=== PATIENT | male | born 1985 | race Caucasian/White ===

== ENCOUNTER 2018-06-10 11:16 | Outpatient (CLI) | payer SELFPAY ==
[2018-06-10 13:17] LABS: ALT 87 U/L (12-78); AST 30 U/L (15-37); Alkaline Phosphatase 80 U/L (46-116); Anion Gap 9.5 mmol/L (3-11); BUN 12 mg/dL (7-18); Bilirubin, Total 0.4 mg/dL (0.2-1.0); CO2 27.5 mmol/L (21.0-32.0); CREATININE 1.11 mg/dL (0.70-1.30); Calcium 9.1 mg/dL (8.5-10.1); Chloride 104 mmol/L (98-107); Cholesterol 256 mg/dL (50-200); Glucose 95 mg/dL (70-100); HDL Cholesterol 28 mg/dL (40-60); LDL CHOLESTEROL 175 mg/dL (<100); Sodium 141 mmol/L (136-145); TSH 1.63 uIU/mL (0.358-3.74); Total Protein 7.4 g/dL (6.4-8.2); Triglyceride 243 mg/dL (30-150)
[2018-06-10 13:42] LABS: FREE T4 1.17 ng/dL (0.76-1.46)
== END 2018-06-10 11:36 ==
PROVIDERS: PCP Nurse Practitioner Family; Visit Provider Nurse Practitioner Family
DX: Z00.00 Encounter for general adult medical examination without abnormal findings (principal); Z13.29 Encounter for screening for other suspected endocrine disorder; Z13.228 Encounter for screening for other metabolic disorders; Z13.220 Encounter for screening for lipoid disorders
CPT/HCPCS: 36415; 80053; 80061; 83721; 84439; 84443

== ENCOUNTER 2019-03-02 15:40 | Outpatient (REF) | payer BC, SELFPAY ==
[2019-03-03 10:54] LABS: Campylobacter PCR SEE COMMENTS; Salmonella PCR SEE COMMENTS; Shiga Toxin PCR SEE COMMENTS; Shigella/Enteroinvasive Ecoli SEE COMMENTS
== END 2019-03-02 16:00 ==
LOC: LBN 15:40
PROVIDERS: PCP Nurse Practitioner Family; Visit Provider Internal Medicine
DX: R19.7 Diarrhea, unspecified (principal)
CPT/HCPCS: 87329; 87505; 87177

== ENCOUNTER 2019-12-19 12:37 | Outpatient (REF) | payer BC, SELFPAY ==
[2019-12-19 14:14] LABS: BUN 13 mg/dL (7-18); CREATININE 0.99 mg/dL (0.70-1.30); Calculated LDL 189 mg/dL (<100); Chloride 104 mmol/L (98-107); Cholesterol 249 mg/dL (<200); Glucose 97 mg/dL (74-106); HDL Cholesterol 29 mg/dL (40-60); Potassium 4.7 mmol/L (3.5-5.1); Sodium 140 mmol/L (136-145); Triglyceride 157 mg/dL (<150)
[2019-12-19 14:20] LABS: Hemoglobin A1C 5.2 % (3.8-5.6)
== END 2019-12-19 12:57 ==
LOC: LBN 12:37
PROVIDERS: PCP Nurse Practitioner Family; Visit Provider Nurse Practitioner Family
DX: E78.5 Hyperlipidemia, unspecified (principal)
CPT/HCPCS: 80048; 80061; 83036

== ENCOUNTER 2020-01-24 13:08 | Outpatient (CLI) | payer BC, SELFPAY ==
[2020-01-26 11:34] LABS: Patient Race White; SARS-CoV-2 RNA Undetected (Undetected); SARS-CoV-2 Specimen Source Nasopharynx
== END 2020-01-24 13:28 ==
PROVIDERS: PCP Nurse Practitioner Family; Visit Provider Nurse Practitioner
DX: Z11.59 Encounter for screening for other viral diseases (principal)
CPT/HCPCS: U0003

== ENCOUNTER 2023-12-14 17:03 | Outpatient (REF) | payer BC, SELFPAY ==
[2023-12-14 21:03] LABS: Abs Immature Grans 0.07 10^3/uL (0.0-0.06); Absolute Basophil Count 0.05 10^3/uL (0.0-0.2); Absolute Eosinophil Count 0.11 10^3/uL (0.0-0.7); Absolute Lymphocyte Count 1.72 10^3/uL (1.2-3.4); Absolute Monocyte Count 0.71 10^3/uL (0.1-0.8); Basophils % 0.4 %; Eosinophils % 0.9 %; HCT 42.2 % (40.0-50.0); HGB 14.1 g/dL (13.5-17.5); Immature Grans % 0.6 %; Lymphocytes % 14.6 %; MCH 29.3 pg (27.0-33.0); MCHC 33.4 % (32.0-36.0); MCV 88 fL (80-95); MPV 10.3 fL (8.0-11.0); Neutrophils % 77.5 %; Platelet Count 295 10^3/uL (130-400); RBC 4.82 10^6/uL (4.36-5.78); RDW 12.8 % (11.8-14.1); RDW-SD 41.1 fL; WBC 11.79 10^3/uL (4.4-10.8)
[2023-12-14 21:05] LABS: Absolute Neutrophil Count 9.14 10^3/uL (1.2-6.7)
[2023-12-14 21:13] LABS: ALT 87 U/L (16-63); AST 54 U/L (15-37); Albumin 3.8 g/dL (3.4-5.0); Alkaline Phosphatase 153 U/L (46-116); Anion Gap 14.3 mmol/L (3-11); BUN 11 mg/dL (7-18); Bilirubin, Total 1.87 mg/dL (0.2-1.0); C-Reactive Protein 16.58 mg/dL (<or=0.5); CO2 23.7 mmol/L (21.0-32.0); CREATININE 1.1 mg/dL (0.70-1.30); Chloride 99 mmol/L (98-107); Estimated GFR 89.22 (mL/min/1.73m2); Glucose 78 mg/dL (74-106); Potassium 4.2 mmol/L (3.5-5.1); Sodium 137 mmol/L (136-145); Total Protein 7.2 g/dL (6.4-8.2)
[2023-12-16 10:46] LABS: Lyme Ab w Rflx to Lyme Confirm Positive (Negative)
[2023-12-16 12:15] LABS: Lyme IgG Ab Positive (Negative); Lyme IgM Ab Positive (Negative)
[2023-12-18 01:17] LABS: Anaplasma phagocytophilum Negative (Negative); B. miyamotoi PCR Negative (Negative); Babesia divergens/MO-1 Negative (Negative); Babesia duncani Negative (Negative); Babesia microti Negative (Negative); Ehrlichia chaffeensis Negative (Negative); Ehrlichia ewingii/canis Negative (Negative); Ehrlichia muris eauclairensis Negative (Negative)
== END 2023-12-14 17:04 | disposition home or self-care (01) ==
LOC: LBN 17:03
PROVIDERS: Visit Provider Nurse Practitioner Family
DX: R68.89 Other general symptoms and signs; L03.312 Cellulitis of back [any part except buttock and flank]
CPT/HCPCS: 80053; 86617; 87798; 85025; 86140; 86618

== ENCOUNTER 2024-03-31 03:10 | Outpatient (CLI) | payer BC, SELFPAY ==
[2024-03-31 12:46] LABS: Abs Immature Grans 0.02 10^3/uL (0.0-0.06); Absolute Basophil Count 0.05 10^3/uL (0.0-0.2); Absolute Eosinophil Count 0.26 10^3/uL (0.0-0.7); Absolute Monocyte Count 0.52 10^3/uL (0.1-0.8); Absolute Neutrophil Count 3.87 10^3/uL (1.2-6.7); Basophils % 0.7 %; Eosinophils % 3.8 %; HCT 50.3 % (40.0-50.0); HGB 16.1 g/dL (13.5-17.5); Immature Grans % 0.3 %; Lymphocytes % 30.8 %; MCH 29.2 pg (27.0-33.0); MCV 91 fL (80-95); MPV 11.3 fL (8.0-11.0); Monocytes % 7.6 %; Neutrophils % 56.8 %; Platelet Count 227 10^3/uL (130-400); RBC 5.52 10^6/uL (4.36-5.78); RDW 13.9 % (11.8-14.1); WBC 6.82 10^3/uL (4.4-10.8)
[2024-03-31 12:58] LABS: Hemoglobin A1C 5.1 % (<5.7)
[2024-03-31 13:08] LABS: ALT 52 U/L (16-63); AST 30 U/L (15-37); Albumin 3.8 g/dL (3.4-5.0); Alkaline Phosphatase 80 U/L (46-116); Anion Gap 9.4 mmol/L (3-11); BUN 11 mg/dL (7-18); Bilirubin, Total 0.58 mg/dL (0.2-1.0); CO2 26.6 mmol/L (21.0-32.0); CREATININE 1.1 mg/dL (0.70-1.30); Calcium 8.6 mg/dL (8.5-10.1); Calculated LDL 151 mg/dL (<100); Chloride 105 mmol/L (98-107); Cholesterol 225 mg/dL (<200); Estimated GFR 88.67 (mL/min/1.73m2); Glucose 90 mg/dL (74-106); HDL Cholesterol 36 mg/dL (40-60); Potassium 3.9 mmol/L (3.5-5.1); Sodium 141 mmol/L (136-145); TSH (W/Ref FT4) 1.29 uIU/mL (0.36-3.74); Total Protein 6.9 g/dL (6.4-8.2); Triglyceride 194 mg/dL (<150)
[2024-03-31 18:33] LABS: Hepatitis C Ab w Rflx HCV PCR Negative (Negative)
[2024-03-31 18:34] LABS: HBs Antibody, Quant 212.1 mIU/mL (See Note); Hep B Surface Ab Positive (See Note); Hepatitis B Core Antibody Negative (Negative); Hepatitis B Surface Antigen Negative (Negative)
[2024-03-31 20:28] LABS: HIV-1/2 Ag & Ab Screen Negative (Negative)
== END 2024-03-31 03:11 | disposition home or self-care (01) ==
LOC: LOS 03:10
PROVIDERS: PCP Nurse Practitioner Family; Visit Provider Nurse Practitioner Family
DX: Z11.59 Encounter for screening for other viral diseases (principal); E78.5 Hyperlipidemia, unspecified; A69.20 Lyme disease, unspecified; Z11.4 Encounter for screening for human immunodeficiency virus [HIV]
CPT/HCPCS: 36415; 80053; 80061; 86704; 86706; 86803; 87340; 87389; 83036; 84443; 85025

== ENCOUNTER 2024-05-19 14:50 | Outpatient (CLI) | payer BC, SELFPAY ==
--- NOTE | 2024-05-19 14:47 | DI.RAD_ITS ---
Exam(s) XR ABDOMEN FLAT UPRIGHT EXAM: 2D digital imaging was performed. CLINICAL HISTORY: evaluate pathology, Abdominal pain R10.9. COMPARISON: No exams were available for comparison TECHNIQUE: Supine and upright views of the abdomen was performed. Three images were obtained. FINDINGS: LUNG BASES: Clear. BOWEL GAS PATTERN: Nondistended. FREE AIR: None. CALCIFICATIONS: No radiopaque calcifications. OSSEOUS STRUCTURES: Normal for age. OTHER FINDINGS: None. IMPRESSION: No evidence of an acute abdomen. DATA REPOSITORY: RADIATION DOSE DELIVERED:
== END 2024-05-19 15:10 ==
LOC: DI 14:50
PROVIDERS: PCP Nurse Practitioner Family; Visit Provider Nurse Practitioner Family
DX: R10.9 Unspecified abdominal pain (principal)
CPT/HCPCS: 74019

== ENCOUNTER 2024-05-19 14:53 | Outpatient (CLI) | payer BC, SELFPAY ==
[2024-05-19 15:20] LABS: Abs Immature Grans 0.04 10^3/uL (0.0-0.06); Absolute Basophil Count 0.05 10^3/uL (0.0-0.2); Absolute Eosinophil Count 0.16 10^3/uL (0.0-0.7); Absolute Lymphocyte Count 1.61 10^3/uL (1.2-3.4); Absolute Neutrophil Count 8.68 10^3/uL (1.2-6.7); Basophils % 0.4 %; Eosinophils % 1.4 %; HCT 46.3 % (40.0-50.0); HGB 15.4 g/dL (13.5-17.5); Immature Grans % 0.4 %; Lymphocytes % 14.2 %; MCH 29.5 pg (27.0-33.0); MCHC 33.3 % (32.0-36.0); MCV 89 fL (80-95); MPV 10.5 fL (8.0-11.0); Monocytes % 7.1 %; Neutrophils % 76.5 %; Platelet Count 217 10^3/uL (130-400); RBC 5.22 10^6/uL (4.36-5.78); RDW 13.2 % (11.8-14.1); RDW-SD 42.6 fL; WBC 11.34 10^3/uL (4.4-10.8)
[2024-05-19 15:22] LABS: Absolute Monocyte Count 0.81 10^3/uL (0.1-0.8)
[2024-05-19 15:35] LABS: ALT 38 U/L (16-63); AST 17 U/L (15-37); Albumin 4.2 g/dL (3.4-5.0); Alkaline Phosphatase 78 U/L (46-116); Anion Gap 8.2 mmol/L (3-11); BUN 12 mg/dL (7-18); Bilirubin, Total 1.18 mg/dL (0.2-1.0); CO2 28.8 mmol/L (21.0-32.0); CREATININE 1.1 mg/dL (0.70-1.30); Chloride 102 mmol/L (98-107); Estimated GFR 88.67 (mL/min/1.73m2); Glucose 92 mg/dL (74-106); Potassium 4.1 mmol/L (3.5-5.1); Sodium 139 mmol/L (136-145); Total Protein 7.6 g/dL (6.4-8.2)
== END 2024-05-19 14:54 | disposition home or self-care (01) ==
LOC: LBO 14:53
PROVIDERS: PCP Nurse Practitioner Family; Visit Provider Nurse Practitioner Family
DX: R10.9 Unspecified abdominal pain (principal)
CPT/HCPCS: 36415; 80053; 85025

== ENCOUNTER 2024-05-21 14:18 | Inpatient (IN) | payer BC, SELFPAY ==
[2024-05-21] VITALS (11 sets, daily range): BP systolic 136–178; BP diastolic 69–101; PULSE 88–121; RESP 12–19; TEMP 36.6–37.5; O2SAT 92–95
--- NOTE | 2024-05-21 14:30 | DI.CT_ITS ---
Exam(s) CT ABDOMEN PELVIS W EXAM: CT ABDOMEN PELVIS W CLINICAL HISTORY: Periumbilical pain, eval diverticulitis, appy, etc TECHNIQUE: Imaging Protocol: Axial computed tomography images with coronal and sagittal reformatted images were created and reviewed. CONTRAST MATERIAL: Intravenous: Omnipaque 350 Contrast volume:100 mL Oral: No COMPARISON: CR XR ABDOMEN FLAT UPRIGHT from 05/19/2024 FINDINGS: ABDOMEN: Lung Bases: There is atelectasis in the lung bases. Liver: Normal density. No measurable mass. Portal, Superior Mesenteric, and Splenic Veins: Unremarkable. Gallbladder and Biliary Tract: No radiodense calculus or dilation. Pancreas: Normal density, no abnormal calcifications or inflammatory process. Spleen: Normal. Adrenals: No masses seen. Kidneys: Normal size, contour and axis. No radiodense stones or obstructive uropathy. No masses seen. Abdominal Aorta: Abdominal portion non-dilated. Bowel: There is bowel wall thickening seen in the mid sigmoid colon. There are diverticula present. There are inflammatory changes seen in the surrounding soft tissues. The findings are most suggesti ve of acute diverticulitis. There is extraluminal air adjacent to the bowel consistent with a ruptur ed viscus. There is no evidence of bowel obstruction. Appendix is unremarkable. Peritoneal Cavity: No ascites, collection or mesenteric inflammatory response. Lymph Nodes: Within normal limits. Bones: Within normal limits for the patient's age. There is L5 spondylolysis without significant spo ndylolisthesis. Soft Tissues: Unremarkable. PELVIS: Bladder: Symmetric distention, no gross wall thickening. Reproductive Organs: Unremarkable as visualized. Lymph Nodes: Within normal limits. Bones: Within normal limits for the patient's age. IMPRESSION: 1. Findings consistent with acute diverticulitis of the sigmoid colon. There is free air seen around the bowel consistent with perforation. No abscess is present. 2. Findings were discussed with Dr. Reyes at 3:39 p.m. on 05/21/2024. RADIATION DOSE DELIVERED: 730.89mGy.cm Total DLP DATA REPOSITORY: All CT scans at this facility are submitted to the National Radiology Data Registry (NRDR) Dose Index Registry (DIR) with the [employer] (ACR). RADIATION OPTIMIZATION: All CT scans at this facility use at least one of these dose optimization te chniques: automated exposure control; mA and/or kV adjustment per patient size (includes targeted exa ms where dose is matched to clinical indication); or iterative reconstruction.
--- NOTE | 2024-05-21 14:36 | ED.GENADUL_ITS ---
Discharge Plan Disposition Patient Disposition: Admit to [facility] Condition: Stable Discharge Details Chief Complaint: Abd Prob Clinical Impression: Perforated diverticulum of large intestine Admit Date/Time: 05/21/24 17:11 Admit Provider: Georgi Tariq Attending Provider: Georgi Tariq Primary Care Provider: Fatou Hayes ED Provider: Maryann Salgado Discharge Data Discharge Date/Time-TO BE ENTERED AT DEPARTURE: 05/21/24 17:49 HPI General Mode of arrival: ambulatory . Date/Time Provider Initiated Documentation: 05/21/24 14:20 . Limitations to Documentation: no limitations . Information obtained by: patient, family and old records reviewed . HPI Narrative: HPI: This is a 39-year-old male patient with a past medical history significant for nicotine and alcohol use, bilateral inguinal hernia surgery as a child, hyperlipidemia, presenting for evaluation of abdominal pain. He has had pain in his bilateral lower abdomen since Thursday, was seen at urgent care where he had reassuring lab work and an abdominal x-ray, and was started on antibiotics for diverticulitis. He started those antibiotics yesterday (Augmentin), but has not noticed an improvement in his symptoms and has actually noticed a worsening. He has had a fever for the last 3 days to a Tmax of 101.4, treating with Advil in the home environment, last dose last night. He reports that he has had some nausea but no vomiting, has not had a large stool output given his low p.o. intake, but has been able to drink water. He denies hematuria, hematochezia, and has been passing flatulence. The patient has not had any other abdominal surgeries, denies back pain, chest pain. Exam: Gen: Awake and alert, in no apparent distress HEENT: Non-icteric sclera Neck: Supple Lungs: No apparent respiratory distress, normal respiratory effort. CV: Appears well perfused, heart with tachycardic rate but regular rhythm, strong distal pulses Abdomen: Non-distended, bowel sounds present, abdomen tender to palpation in the periumbilical bilateral lower quadrant regions without rigidity, does have some rebound tenderness. No guarding. MSK: Moves 4 extremities without apparent limitation in ROM Skin: Visualized skin without rashes, cyanosis. Neuro: Normal Gait, no obvious focal deficits or facial asymmetry. Speaks in full, clear sentences. Psych: Appropriate for situation. MDM: This is a 39-year-old male patient presenting for evaluation of abdominal pain. Differential includes but is not related to diverticulitis, including complication such as microperforation or abscess, considered appendicitis, urinary tract conditions including pyelonephritis, UTI, nephrolithiasis. Considered bowel obstruction, mesenteric ischemia and aortic pathology though the patient is young he does have a few risk factors such as his nicotine use and hyperlipidemia. Considered hepatitis, pancreatitis, cholecystitis, gastritis/PUD. Considered metabolic and electrolyte derangements, dehydration and kidney injury. Will obtain laboratory studies to include CBC, CMP, magnesium, lipase, and urinalysis. I will obtain a CT abdomen pelvis with contrast to better characterize any abnormalities which might account for the patient's symptoms. The patient is desiring to avoid excessive medications, and so I will provide him with a dose of intravenous Toradol for initial pain management. ED Course: I reviewed the patient's laboratory studies, which show a leukocytosis to 15 without anemia or thrombocytopenia. Chemistry panel with very mild hyponatremia, no evidence of kidney dysfunction, but the patient does have an elevated bilirubin to 6.8, predominantly conjugated, with a mild transaminitis and elevation in his alkaline phosphatase. Lipase is low and the urine demonstrates ketonuria and bilirubin but no infectious findings. I independently reviewed the patient's CT scan, which does show evidence of diverticulitis with a concern for perforation with free air and extensive fat stranding. No evidence for liver or gallbladder pathology on the CT imaging. The patient received a dose of Zosyn, and a repeat bilirubin study was sent at the request of general surgery. This shows a slight decrease with a bilirubin of 5.6. He had a normal INR, and a negative Tylenol level. The patient was graciously accepted to the general surgery service for admission for his complicated diverticulitis. Transferred from our department without incident. The patient's tachycardia resolved during his time in the emergency department. Maryann Salgado MD Related Data Home Medications ?Medication ?Instructions ?Recorded ?Confirmed amoxicillin 875 mg-potassium 1 tab PO BID 10 days #20 tabs 05/19/24 05/21/24 clavulanate 125 mg tablet Previous Rx's ?Medication ?Instructions ?Recorded amoxicillin 875 mg-potassium 1 tab PO BID 10 days #20 tabs 05/19/24 clavulanate 125 mg tablet Allergies Allergy/AdvReac Type Severity Reaction Status Date / Time No Known Allergies Allergy Verified 05/21/24 14:25 General Stated Complaint: Abd Prob DAR: 3 Course Vital Signs Vital signs: Vital Signs Temperature 36.6 C 05/21/24 14:20 Pulse 121 H 05/21/24 14:20 Respiratory Rate 18 05/21/24 14:20 Blood Pressure 178/101 H 05/21/24 14:20 Pulse Oximetry 95 05/21/24 14:20 Temperature 36.6 C 05/21/24 14:27 Temperature Source Oral 05/21/24 14:27 Pulse 121 H 05/21/24 14:27 Respiratory Rate 18 05/21/24 14:27 Blood Pressure 178/101 H 05/21/24 14:27 Blood Pressure Position Sitting 05/21/24 14:27 Pulse Oximetry 95 05/21/24 14:27 Oxygen Delivery Method Room Air 05/21/24 14:27 Oxygen Flow Rate 0 05/21/24 14:27 Medical Decision Making Quality:SDOH Health Related Social Needs: Health related social needs education (Z55.6) PFSH All Active Problems (Updated 05/21/24 @ 18:03 by Maryann Salgado MD) Perforated diverticulum of large intestine (Acute) Obesity (BMI 30-39.9) (Chronic) Cigarette smoker (Chronic) Hyperlipidemia (Chronic) Medical History Lyme disease (2023) Surgical History S/P left inguinal hernia repair (07/22/94) S/P right inguinal hernia repair (~03/1987) Family History Mother , at 48 from hypothermia Substance abuse Alcohol abuse Father , at 66 of [place] Heart disease Myocardial infarction Alcohol abuse Maternal Grandfather , in his 70s of kidney cancer Cancer of kidney Maternal Grandmother , at 82 of pancreatic cancer Pancreatic cancer Alcohol use disorder Paternal Grandfather , in his 60s of [place] Heart disease Myocardial infarction Paternal Grandmother , in her 80s No problems noted. Sister No problems noted. Sister No problems noted. Sister No problems noted. Brother No problems noted. Brother No problems noted. Social History Smoking/Tobacco Use Status: Current every day Tobacco Type: cigarettes Smoking packs per day: 1.00 Smoking cigarettes per day: 20.0 Years smoked: 12 Smoking pack-years: 12.00 Tobacco: How many years used: 17 Quit status: considering quitting Second Hand Exposure: Yes Smoking risk assessment performed?: Yes Alcohol Intake: current Alcohol Intake frequency: 0-2 drinks per day Alcohol type: beer Details: 6 or more drinks weekly Drug use: Occasionally Substance use type: marijuana Adopted: No Caregiver/Support person: No Household members: spouse Housing: house Number of Children: 0 number of grandchildren: 0 Communication Needs: Corrective Lenses Education Level: high school Do you need help understanding health information?: Rarely 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 Pets and animals: Yes Pets and animals: cat(s) and dog(s) Sexually active: Yes Do you think of yourself as: straight/heterosexual Current gender identity: male What is your relationship status?: How often do you talk on the phone with friends or family?: three or more times per week How often do you get together with friends or relatives?: twice per week How often do you attend jehovah's witness or yazidism services?: decline to answer Do you belong to any clubs or organized social groups?: yes Panel score (0-1 are the most socially isolated patients): 3 NHANES result reviewed/action taken: Yes What type of physical activity do you participate in: none and other Details: Golf Frequency: 1-2 times per week Sayra/Scientology: Non baptism Special sayra needs: No Seatbelt use: always Helmet use: No Drive intox or ride w/intox milk wagon driver: Yes Drive intox or w/intox milk wagon driver: weekly Firearms in home: Yes Firearms unloaded and locked: Yes Do you feel safe at home: Yes Do you feel safe in your relationship?: Yes Victim of physical abuse: No Victim of emotional abuse: No Victim of sexual abuse: No Would you like helpful sources: No PAWSS Have you Been Recently Intoxicated or Drunk Within the Last 30 days?: No Have you Ever Experienced Previous Episodes of Alcohol Withdrawal?: No Have you ever Experienced Withdrawal Seizures?: No Have you ever Experienced Delirium Tremens(DT)s?: No Have you ever undergone Alcohol Rehabilitation Treatment (i.e, inpt ot outpatient treatment programs)?: No Have you ever Experienced Blackouts?: No Have you ever Combined Alcohol with other Downers within the last 90 days?: No Have you ever Combined Alcohol with any other Substance of Abuse during the last 90 days?: No Positive Blood Alcohol level on Presentation? [PCS.BAL]: Unable to Obtain Evidence of Increased Autonomic Activity (i.e. HR>120, tremor, sweating, agitation, nausea)?: No Result: 0
[2024-05-21] MEDS: Ketorolac 15 MG/ML VIAL IVP (14:45)
[2024-05-21 14:59] LABS: Abs Immature Grans 0.09 10^3/uL (0.0-0.06); Absolute Basophil Count 0.03 10^3/uL (0.0-0.2); Absolute Eosinophil Count 0.03 10^3/uL (0.0-0.7); Absolute Lymphocyte Count 1.15 10^3/uL (1.2-3.4); Basophils % 0.2 %; Eosinophils % 0.2 %; HGB 15.9 g/dL (13.5-17.5); Immature Grans % 0.6 %; Lymphocytes % 7.6 %; MCH 29.1 pg (27.0-33.0); MCHC 33.1 % (32.0-36.0); MCV 88 fL (80-95); MPV 10.6 fL (8.0-11.0); Monocytes % 6.1 %; Neutrophils % 85.3 %; Platelet Count 234 10^3/uL (130-400); RBC 5.46 10^6/uL (4.36-5.78); RDW 13.1 % (11.8-14.1); RDW-SD 42.3 fL; WBC 15.18 10^3/uL (4.4-10.8)
[2024-05-21] MEDS: Omnipaque 350 MG/ML 100 ML BTL IJ (15:00)
[2024-05-21] MEDS: Normal Saline - Diluent 50 ML VIAL IJ (15:01)
[2024-05-21 15:03] LABS: Bilirubin Moderate (Negative); Blood Negative (Negative); Clarity Clear (Clear); Glucose Negative (Negative); Ketones >=160 mg/dL (Negative); Leukocyte Esterase Negative (Negative); Nitrite Negative (Negative); Specific Gravity 1.015 (1.005-1.025); Urobilinogen >=8.0 mg/dL (Up to 0.2)
[2024-05-21 15:08] LABS: Absolute Monocyte Count 0.93 10^3/uL (0.1-0.8); Absolute Neutrophil Count 12.95 10^3/uL (1.2-6.7)
[2024-05-21 15:17] LABS: ALT 70 U/L (16-63); AST 45 U/L (15-37); Albumin 3.6 g/dL (3.4-5.0); Alkaline Phosphatase 159 U/L (46-116); BUN 9 mg/dL (7-18); Calcium 9.4 mg/dL (8.5-10.1); Chloride 97 mmol/L (98-107); Estimated GFR 99.41 (mL/min/1.73m2); Glucose 91 mg/dL (74-106); Magnesium 2.1 mg/dL (1.8-2.4); Potassium 3.7 mmol/L (3.5-5.1); Sodium 132 mmol/L (136-145); Total Protein 8.2 g/dL (6.4-8.2)
[2024-05-21 15:22] LABS: Bacteria Rare HPF (Negative); C & S Indicated? No; Casts Negative LPF (Negative); Crystals Negative HPF (Negative); Epithelial Cells Rare HPF (Negative); Mucus Negative (Negative); Other Cells Rare Transitional (Negative); RBC 0-2 HPF (0-2); WBC 0-2 HPF (0-5)
[2024-05-21 15:31] LABS: Lipase 17 U/L (<78)
[2024-05-21 15:31] LABS: Lab Add On Test DONE
[2024-05-21 15:42] LABS: Bilirubin, Direct 4.2 mg/dL (0.0-0.2)
[2024-05-21] MEDS: PIPERACILLIN/TAZO 4.5 GM in Normal Saline 100 ML IVPB (16:05)
[2024-05-21 16:33] LABS: INR 1.1 (0.9-1.1); Prothrombin Time 10.6 sec (9.1-11.1)
[2024-05-21 17:00] LABS: Acetaminophen < 2 ug/mL (10-30)
[2024-05-21 17:03] LABS: Bilirubin, Direct 3.5 mg/dL (0.0-0.2); Bilirubin, Total 5.78 mg/dL (0.2-1.0)
--- NOTE | 2024-05-21 17:10 | SCONE_ITS ---
Date of service: 05/21/24 Time of Service: 17:12 Assessment and Plan Assessment and plan (1) Perforated diverticulum of large intestine: Status: Acute Assessment and plan: 39-year-old man with perforated sigmoid diverticulitis. Hemodynamically stable. Focal peritoneal signs only. Has some degree of acute liver failure secondary to sepsis, but that appears to be improving. Plan: N.p.o. IV fluid resuscitation IV antibiotics DVT prophylaxis Serial abdominal exams Monitor lab work Exploratory surgery with Camacho's diversion if anything acutely worsens or if not improving after 24-36 hours History of Present Illness Narrative: 39 man presented with perforated diverticulitis. Reportedly has no significant medical problems. No prior surgeries. The first set PFS All Active Problems (Updated 05/21/24 @ 17:51 by Georgi Tariq MD) Perforated diverticulum of large intestine (Acute) Obesity (BMI 30-39.9) (Chronic) Cigarette smoker (Chronic) Hyperlipidemia (Chronic) Medical History Lyme disease (2023) Surgical History S/P left inguinal hernia repair (07/22/94) S/P right inguinal hernia repair (~03/1987) Family History Mother , at 48 from hypothermia Substance abuse Alcohol abuse Father , at 66 of [place] Heart disease Myocardial infarction Alcohol abuse Maternal Grandfather , in his 70s of kidney cancer Cancer of kidney Maternal Grandmother , at 82 of pancreatic cancer Pancreatic cancer Alcohol use disorder Paternal Grandfather , in his 60s of [place] Heart disease Myocardial infarction Paternal Grandmother , in her 80s No problems noted. Sister No problems noted. Sister No problems noted. Sister No problems noted. Brother No problems noted. Brother No problems noted. Social History Smoking/Tobacco Use Status: Current every day Tobacco Type: cigarettes Smoking packs per day: 1.00 Smoking cigarettes per day: 20.0 Years smoked: 12 Smoking pack-years: 12.00 Tobacco: How many years used: 17 Quit status: considering quitting Second Hand Exposure: Yes Smoking risk assessment performed?: Yes Alcohol Intake: current Alcohol Intake frequency: 0-2 drinks per day Alcohol type: beer Details: 6 or more drinks weekly Drug use: Occasionally Substance use type: marijuana Adopted: No Caregiver/Support person: No Household members: spouse Housing: house Number of Children: 0 number of grandchildren: 0 Communication Needs: Corrective Lenses Education Level: high school Do you need help understanding health information?: Rarely 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 Pets and animals: Yes Pets and animals: cat(s) and dog(s) Sexually active: Yes Do you think of yourself as: straight/heterosexual Current gender identity: male What is your relationship status?: How often do you talk on the phone with friends or family?: three or more times per week How often do you get together with friends or relatives?: twice per week How often do you attend religion or sikhism services?: decline to answer Do you belong to any clubs or organized social groups?: yes Panel score (0-1 are the most socially isolated patients): 3 NHANES result reviewed/action taken: Yes What type of physical activity do you participate in: none and other Details: Golf Frequency: 1-2 times per week Sayra/Latter-Day: Non restorationism Special sayra needs: No Seatbelt use: always Helmet use: No Drive intox or ride w/intox cdl company flatbed driver: Yes Drive intox or w/intox cdl company flatbed driver: weekly Firearms in home: Yes Firearms unloaded and locked: Yes Do you feel safe at home: Yes Do you feel safe in your relationship?: Yes Victim of physical abuse: No Victim of emotional abuse: No Victim of sexual abuse: No Would you like helpful sources: No Exam Narrative Exam Narrative: By report from ED physicians: Nontoxic. Heart rate has normalized under 100 Abdomen is tender, but focal in left lower quadrant and pelvis. Results Last Vital Signs Temp 97.8 F 05/21/24 14:27 Pulse 121 H 05/21/24 14:27 Resp 18 05/21/24 14:27 BP 178/101 H 05/21/24 14:27 Pulse Ox 95 05/21/24 14:27 Labs 05/21/24 14:43 05/21/24 14:43 Labs: Laboratory Results - last 24 hr 05/21/24 05/21/24 05/21/24 14:38 14:43 15:25 WBC 15.18 H RBC 5.46 Hgb 15.9 Hct 48.0 MCV 88 MCH 29.1 MCHC 33.1 RDW 13.1 Plt Count 234 MPV 10.6 Immature Gran % 0.6 Neutrophils % 85.3 Lymphocytes % 7.6 Monocytes % 6.1 Eosinophils % 0.2 Basophils % 0.2 Nucleated RBC % 0.0 Absolute Neutrophils 12.95 H Absolute Lymphocytes 1.15 L Absolute Monocytes 0.93 H Absolute Eosinophils 0.03 Absolute Basophils 0.03 PT INR Sodium 132 L Potassium 3.7 Chloride 97 L Carbon Dioxide 26.0 Anion Gap 9.0 BUN 9 Creatinine 1.0 Est GFR (CKD-EPI 2020) 99.41 Glucose 91 Calcium 9.4 Magnesium 2.1 Total Bilirubin 6.80 H Conjugated Bilirubin 4.2 H AST 45 H ALT 70 H Alkaline Phosphatase 159 H Total Protein 8.2 Albumin 3.6 Lipase 17 Urine Color Yellow Urine Clarity Clear Urine pH 6.0 Ur Specific [place] 1.015 Urine Protein 30 H Urine Ketones >=160 H Urine Blood Negative Urine Nitrite Negative Urine Bilirubin Moderate H Urine Urobilinogen >=8.0 H Ur Leukocyte Esterase Negative Urine RBC 0-2 Urine WBC 0-2 Ur Epithelial Cells Rare Urine Crystals Negative Urine Bacteria Rare Urine Casts Negative Urine Mucus Negative Urine Other Rare Transitional Ur Culture Indicated? No Urine Glucose Negative Acetaminophen Add-On Test Request DONE 05/21/24 15:58 WBC RBC Hgb Hct MCV MCH MCHC RDW Plt Count MPV Immature Gran % Neutrophils % Lymphocytes % Monocytes % Eosinophils % Basophils % Nucleated RBC % Absolute Neutrophils Absolute Lymphocytes Absolute Monocytes Absolute Eosinophils Absolute Basophils PT 10.6 INR 1.1 Sodium Potassium Chloride Carbon Dioxide Anion Gap BUN Creatinine Est GFR (CKD-EPI 2020) Glucose Calcium Magnesium Total Bilirubin 5.78 H Conjugated Bilirubin 3.5 H AST ALT Alkaline Phosphatase Total Protein Albumin Lipase Urine Color Urine Clarity Urine pH Ur Specific [place] Urine Protein Urine Ketones Urine Blood Urine Nitrite Urine Bilirubin Urine Urobilinogen Ur Leukocyte Esterase Urine RBC Urine WBC Ur Epithelial Cells Urine Crystals Urine Bacteria Urine Casts Urine Mucus Urine Other Ur Culture Indicated? Urine Glucose Acetaminophen < 2 Add-On Test Request
--- NOTE | 2024-05-21 17:40 | W.PC.ACHO ---
Registration Status: Primary Language: Preferred Language: ED Information & Data Chief Complaint Abd Prob 05/21/24 14:39 Triage Note Pt arrives to ED c/o lower 05/21/24 14:20 abdominal pain since Thursday. Pt was seen at [facility] on - had blood work + x-rays and was treated w/ ABX for diverticulitis but pt has not had any sx improvement. Fever x 3 days per pt. Denies vomiting. Endorses nausea + diarrhea. Hx of an abd surgery when he was younger; unsure exactly what was done. Medical / Surgical History (Last Reviewed 05/19/24 @ 13:39 by Lena Lemos NP) Lyme disease (2023) (Last Reviewed 05/19/24 @ 13:39 by Lena Lemos NP) S/P left inguinal hernia repair (07/22/94) S/P right inguinal hernia repair (~03/1987) Most Recent Vital Signs Temperature 36.6 C 05/21/24 14:27 Temperature Source Oral 05/21/24 14:27 Pulse 95 H 05/21/24 17:31 Pulse 100 H 05/21/24 17:31 Respiratory Rate 16 05/21/24 17:31 Blood Pressure 156/81 H 05/21/24 17:31 Blood Pressure Mean 105 05/21/24 17:31 Blood Pressure Position Sitting 05/21/24 14:27 Pulse Oximetry 94 05/21/24 17:31 Oxygen Delivery Method Room Air 05/21/24 14:27 Oxygen Flow Rate 0 05/21/24 14:27 Pain Level 4 05/21/24 14:45 Allergies No Known Allergies Allergy (Verified 05/21/24 14:25) Precautions Isolation Standard precaution 05/21/24 14:25 Active Medications Generic Name Dose Route Start Last Admin Trade Name Freq PRN Reason Stop Dose Admin Iohexol 100 ml 05/21/24 15:00 05/21/24 15:00 Omnipaque 350 Mg/Ml 100 Ml Btl IJ 06/20/24 23:59 100 ml DIRECTED ENDER Administration Sodium Chloride 50 ml 05/21/24 15:00 05/21/24 15:01 Normal Saline - Diluent 50 Ml Vial IJ 50 ml .FOR DI USE ENDER Administration IV IV Catheter Type [Right Saline Lock Antecubital] IV Catheter Gauge [Right 18 Antecubital] Diet Orders Category Date Time Status Nothing Per Oral [DIET] Nutrition 05/21/24 Dinner Active Diagnostics 05/21/24 05/21/24 05/21/24 Range/Units 15:58 15:25 14:43 WBC 15.18 H (4.4-10.8) 10^3/uL RBC 5.46 (4.36-5.78) 10^6/uL Hgb 15.9 (13.5-17.5) g/dL Hct 48.0 (40.0-50.0) % MCV 88 (80-95) fL MCH 29.1 (27.0-33.0) pg MCHC 33.1 (32.0-36.0) % RDW 13.1 (11.8-14.1) % Plt Count 234 (130-400) 10^3/uL MPV 10.6 (8.0-11.0) fL Immature Gran % 0.6 % Neutrophils % 85.3 % Lymphocytes % 7.6 % Monocytes % 6.1 % Eosinophils % 0.2 % Basophils % 0.2 % Nucleated RBC % 0.0 (0.0-0.3) % Absolute Neutrophils 12.95 H (1.2-6.7) 10^3/uL Absolute Lymphocytes 1.15 L (1.2-3.4) 10^3/uL Absolute Monocytes 0.93 H (0.1-0.8) 10^3/uL Absolute Eosinophils 0.03 (0.0-0.7) 10^3/uL Absolute Basophils 0.03 (0.0-0.2) 10^3/uL PT 10.6 (9.1-11.1) sec INR 1.1 (0.9-1.1) Sodium 132 L (136-145) mmol/L Potassium 3.7 (3.5-5.1) mmol/L Chloride 97 L (98-107) mmol/L Carbon Dioxide 26.0 (21.0-32.0) mmol/L Anion Gap 9.0 (3-11) mmol/L BUN 9 (7-18) mg/dL Creatinine 1.0 (0.70-1.30) mg/dL Est GFR (CKD-EPI 2020) 99.41 (mL/min/1.73m2) Glucose 91 (74-106) mg/dL Calcium 9.4 (8.5-10.1) mg/dL Magnesium 2.1 (1.8-2.4) mg/dL Total Bilirubin 5.78 H 6.80 H (0.2-1.0) mg/dL Conjugated Bilirubin 3.5 H 4.2 H (0.0-0.2) mg/dL AST 45 H (15-37) U/L ALT 70 H (16-63) U/L Alkaline Phosphatase 159 H (46-116) U/L Total Protein 8.2 (6.4-8.2) g/dL Albumin 3.6 (3.4-5.0) g/dL Lipase 17 (<78) U/L Urine Color (Yellow) Urine Clarity (Clear) Urine pH (5-8) Ur Specific [place] (1.005-1.025) Urine Protein (Neg-Trace) mg/dL Urine Ketones (Negative) mg/dL Urine Blood (Negative) Urine Nitrite (Negative) Urine Bilirubin (Negative) Urine Urobilinogen (Up to 0.2) mg/dL Ur Leukocyte Esterase (Negative) Urine RBC (0-2) HPF Urine WBC (0-5) HPF Ur Epithelial Cells (Negative) HPF Urine Crystals (Negative) HPF Urine Bacteria (Negative) HPF Urine Casts (Negative) LPF Urine Mucus (Negative) Urine Other (Negative) Ur Culture Indicated? Urine Glucose (Negative) mg/dL Acetaminophen < 2 (10-30) ug/mL Hepatitis A IgM Ab Pending Hep Bs Antigen Pending Hep B Core Total Ab Pending Hepatitis C Antibody Pending Add-On Test Request DONE 05/21/24 Range/Units 14:38 WBC (4.4-10.8) 10^3/uL RBC (4.36-5.78) 10^6/uL Hgb (13.5-17.5) g/dL Hct (40.0-50.0) % MCV (80-95) fL MCH (27.0-33.0) pg MCHC (32.0-36.0) % RDW (11.8-14.1) % Plt Count (130-400) 10^3/uL MPV (8.0-11.0) fL Immature Gran % % Neutrophils % % Lymphocytes % % Monocytes % % Eosinophils % % Basophils % % Nucleated RBC % (0.0-0.3) % Absolute Neutrophils (1.2-6.7) 10^3/uL Absolute Lymphocytes (1.2-3.4) 10^3/uL Absolute Monocytes (0.1-0.8) 10^3/uL Absolute Eosinophils (0.0-0.7) 10^3/uL Absolute Basophils (0.0-0.2) 10^3/uL PT (9.1-11.1) sec INR (0.9-1.1) Sodium (136-145) mmol/L Potassium (3.5-5.1) mmol/L Chloride (98-107) mmol/L Carbon Dioxide (21.0-32.0) mmol/L Anion Gap (3-11) mmol/L BUN (7-18) mg/dL Creatinine (0.70-1.30) mg/dL Est GFR (CKD-EPI 2020) (mL/min/1.73m2) Glucose (74-106) mg/dL Calcium (8.5-10.1) mg/dL Magnesium (1.8-2.4) mg/dL Total Bilirubin (0.2-1.0) mg/dL Conjugated Bilirubin (0.0-0.2) mg/dL AST (15-37) U/L ALT (16-63) U/L Alkaline Phosphatase (46-116) U/L Total Protein (6.4-8.2) g/dL Albumin (3.4-5.0) g/dL Lipase (<78) U/L Urine Color Yellow (Yellow) Urine Clarity Clear (Clear) Urine pH 6.0 (5-8) Ur Specific [place] 1.015 (1.005-1.025) Urine Protein 30 H (Neg-Trace) mg/dL Urine Ketones >=160 H (Negative) mg/dL Urine Blood Negative (Negative) Urine Nitrite Negative (Negative) Urine Bilirubin Moderate H (Negative) Urine Urobilinogen >=8.0 H (Up to 0.2) mg/dL Ur Leukocyte Esterase Negative (Negative) Urine RBC 0-2 (0-2) HPF Urine WBC 0-2 (0-5) HPF Ur Epithelial Cells Rare (Negative) HPF Urine Crystals Negative (Negative) HPF Urine Bacteria Rare (Negative) HPF Urine Casts Negative (Negative) LPF Urine Mucus Negative (Negative) Urine Other Rare Transitional (Negative) Ur Culture Indicated? No Urine Glucose Negative (Negative) mg/dL Acetaminophen (10-30) ug/mL Hepatitis A IgM Ab Hep Bs Antigen Hep B Core Total Ab Hepatitis C Antibody Add-On Test Request Intake and Output - 24 Hour Total 05/21/24 14:18 thru 05/21/24 16:42 Intake Total 100 Balance 100 Weight 112.491 kg Intake: IV 100 Falls Risk Assessment History of Falls No History 05/21/24 14:29 Contributing Factors No Factors 05/21/24 14:29 Ambulatory Aids Independent 05/21/24 14:29 Tubes/Lines W/no contributing factors 05/21/24 14:29 Gait Evaluation No gait disturbance 05/21/24 14:29 Cognition No cognitive impairment 05/21/24 14:29 Fall Total Score 10 05/21/24 14:29 Level of Risk Standard/Low Risk 05/21/24 14:29 v v v v v v v v v Sending and/or Receiving Nurses: Please use comment section below to note any information pertinent to the patient hand-off not included above. Information / Comments: Admitted w/ abd pain due to diverticulitis and bowel perforation. Hx of smoking and ETOH use, Elevated WBC, liver pannel, low sodium, 18G RAC ,A&O x4, surgery pending, was given 15mg tramadol at 1445 and 4.5G zosin at 1642 in ER. Report received from: Nathalie SHELLEY RN at [id number]
[2024-05-21] MEDS: Heparin 5,000 UNITS/ML VIAL 5000 UNITS SC (18:05)
[2024-05-21] MEDS: Lactated Ringers 1,000 ML 150 ML IV (18:05)
[2024-05-21] MEDS: PIPERACILLIN/TAZO 3.375 GM in Normal Saline 50 ML IVPB (21:08)
[2024-05-21] MEDS: Normal Saline Flush 10 ML SYR IVP (21:09)
[2024-05-22] MEDS: Heparin 5,000 UNITS/ML VIAL 5000 UNITS SC ×4 (01:22→23:24)
[2024-05-22] MEDS: Lactated Ringers 1,000 ML 150 ML IV ×3 (01:55→17:07)
[2024-05-22] MEDS: Ketorolac 15 MG/ML VIAL IVP ×3 (01:58→20:20)
[2024-05-22] MEDS: PIPERACILLIN/TAZO 3.375 GM in Normal Saline 50 ML IVPB ×4 (03:29→20:23)
[2024-05-22] MEDS: Normal Saline Flush 10 ML SYR IVP ×3 (03:30→21:00)
[2024-05-22 06:44] LABS: HCT 39.5 % (40.0-50.0); HGB 13.4 g/dL (13.5-17.5); MCH 29.3 pg (27.0-33.0); MCHC 33.9 % (32.0-36.0); MCV 86 fL (80-95); Platelet Count 214 10^3/uL (130-400); RBC 4.57 10^6/uL (4.36-5.78); RDW 13.2 % (11.8-14.1); RDW-SD 41.3 fL; WBC 11.93 10^3/uL (4.4-10.8)
[2024-05-22 06:45] LABS: Abs Immature Grans 0.06 10^3/uL (0.0-0.06); Absolute Basophil Count 0.02 10^3/uL (0.0-0.2); Absolute Eosinophil Count 0.04 10^3/uL (0.0-0.7); Absolute Lymphocyte Count 1.52 10^3/uL (1.2-3.4); Absolute Monocyte Count 0.82 10^3/uL (0.1-0.8); Absolute Neutrophil Count 9.47 10^3/uL (1.2-6.7); Basophils % 0.2 %; Eosinophils % 0.3 %; Immature Grans % 0.5 %; Lymphocytes % 12.7 %; MPV 10.5 fL (8.0-11.0); Monocytes % 6.9 %; Neutrophils % 79.4 %
[2024-05-22 07:05] VITALS: BP 135/83; PULSE 90; RESP 18; TEMP 37.2; O2SAT 96
[2024-05-22 07:06] LABS: ALT 56 U/L (16-63); AST 33 U/L (15-37); Albumin 2.5 g/dL (3.4-5.0); Alkaline Phosphatase 131 U/L (46-116); Anion Gap 10.8 mmol/L (3-11); BUN 12 mg/dL (7-18); Bilirubin, Total 4.78 mg/dL (0.2-1.0); CO2 25.2 mmol/L (21.0-32.0); Calcium 8.5 mg/dL (8.5-10.1); Chloride 103 mmol/L (98-107); Estimated GFR 99.41 (mL/min/1.73m2); Glucose 83 mg/dL (74-106); Potassium 3.5 mmol/L (3.5-5.1); Sodium 139 mmol/L (136-145); Total Protein 6.6 g/dL (6.4-8.2)
--- NOTE | 2024-05-22 07:10 | W.PM.PROGNOT ---
Date of Service Date of service: 05/22/24 Time of Service: 21:57 Assessment and Plan Assessment and plan (1) Perforated diverticulum of large intestine: Status: Acute Assessment and plan: 39-year-old man hospital day 1 from perforated diverticulitis. He is improving and he is hemodynamically stable. His lab work is improving. Overall plan: Clear liquid diet IV antibiotics DVT prophylaxis Outpatient colonoscopy Repeat lab work in the morning Subjective Subjective Interval history since last seen: Overall patient endorses significant improvement. He still has a lot of pain, but nothing like it was yesterday. No nausea, no vomiting. He does not have much of an appetite. Voiding adequately. Exam Narrative Exam Narrative: Gen: Non-toxic, mildly uncomfortable but interactive Neuro: Alert and oriented x3 Psych: Good mood and affect. Good insight and understanding into condition. Chest: Non-labored breathing, no wheezing, no visible shortness of breath. Heart: Regular Abdomen: Soft, nondistended, focal left lower quadrant tenderness with focal peritoneal signs. The remainder of the abdomen is soft and nontender. Objective Last Vital Signs Temp 99.5 F 05/21/24 23:36 Pulse 101 H 05/21/24 23:36 Resp 18 05/21/24 23:36 BP 136/69 05/21/24 23:36 Pulse Ox 92 05/21/24 23:36 Laboratory Results - last 24 hr 05/21/24 05/21/24 05/21/24 14:38 14:43 15:25 WBC 15.18 H RBC 5.46 Hgb 15.9 Hct 48.0 MCV 88 MCH 29.1 MCHC 33.1 RDW 13.1 Plt Count 234 MPV 10.6 Immature Gran % 0.6 Neutrophils % 85.3 Lymphocytes % 7.6 Monocytes % 6.1 Eosinophils % 0.2 Basophils % 0.2 Nucleated RBC % 0.0 Absolute Neutrophils 12.95 H Absolute Lymphocytes 1.15 L Absolute Monocytes 0.93 H Absolute Eosinophils 0.03 Absolute Basophils 0.03 PT INR Sodium 132 L Potassium 3.7 Chloride 97 L Carbon Dioxide 26.0 Anion Gap 9.0 BUN 9 Creatinine 1.0 Est GFR (CKD-EPI 2020) 99.41 Glucose 91 Calcium 9.4 Magnesium 2.1 Total Bilirubin 6.80 H Conjugated Bilirubin 4.2 H AST 45 H ALT 70 H Alkaline Phosphatase 159 H Total Protein 8.2 Albumin 3.6 Lipase 17 Urine Color Yellow Urine Clarity Clear Urine pH 6.0 Ur Specific [place] 1.015 Urine Protein 30 H Urine Ketones >=160 H Urine Blood Negative Urine Nitrite Negative Urine Bilirubin Moderate H Urine Urobilinogen >=8.0 H Ur Leukocyte Esterase Negative Urine RBC 0-2 Urine WBC 0-2 Ur Epithelial Cells Rare Urine Crystals Negative Urine Bacteria Rare Urine Casts Negative Urine Mucus Negative Urine Other Rare Transitional Ur Culture Indicated? No Urine Glucose Negative Acetaminophen Add-On Test Request DONE 05/21/24 05/22/24 15:58 06:13 WBC 11.93 H RBC 4.57 Hgb 13.4 L D Hct 39.5 L MCV 86 MCH 29.3 MCHC 33.9 RDW 13.2 Plt Count 214 MPV 10.5 Immature Gran % 0.5 Neutrophils % 79.4 Lymphocytes % 12.7 Monocytes % 6.9 Eosinophils % 0.3 Basophils % 0.2 Nucleated RBC % 0.0 Absolute Neutrophils 9.47 H Absolute Lymphocytes 1.52 Absolute Monocytes 0.82 H Absolute Eosinophils 0.04 Absolute Basophils 0.02 PT 10.6 INR 1.1 Sodium Potassium Chloride Carbon Dioxide Anion Gap BUN Creatinine Est GFR (CKD-EPI 2020) Glucose Calcium Magnesium Total Bilirubin 5.78 H Conjugated Bilirubin 3.5 H AST ALT Alkaline Phosphatase Total Protein Albumin Lipase Urine Color Urine Clarity Urine pH Ur Specific [place] Urine Protein Urine Ketones Urine Blood Urine Nitrite Urine Bilirubin Urine Urobilinogen Ur Leukocyte Esterase Urine RBC Urine WBC Ur Epithelial Cells Urine Crystals Urine Bacteria Urine Casts Urine Mucus Urine Other Ur Culture Indicated? Urine Glucose Acetaminophen < 2 Add-On Test Request PAWSS Have you Been Recently Intoxicated or Drunk Within the Last 30 days?: Yes Have you Ever Experienced Previous Episodes of Alcohol Withdrawal?: No Have you ever Experienced Withdrawal Seizures?: No Have you ever Experienced Delirium Tremens(DT)s?: No Have you ever undergone Alcohol Rehabilitation Treatment (i.e, inpt ot outpatient treatment programs)?: No Have you ever Experienced Blackouts?: No Have you ever Combined Alcohol with other Downers within the last 90 days?: No Have you ever Combined Alcohol with any other Substance of Abuse during the last 90 days?: Yes Positive Blood Alcohol level on Presentation? [PCS.BAL]: No Evidence of Increased Autonomic Activity (i.e. HR>120, tremor, sweating, agitation, nausea)?: No Result: 3 Time Spent with Patient Time Spent with Patient: 35-49 minutes Time was spent: preparing to see the patient(eg.review tests), obtaining and/or reviewing separately otained hiistory, ordering medications,tests, procedures, counseling the patient and care coordination
[2024-05-22 08:02] VITALS: PULSE 102
--- NOTE | 2024-05-22 13:24 | PDOC.CMIN ---
Date of service: 05/22/24 Time of Service: 13:25 Care Management Initial Assmt Initial Assessment Reason for Hospitalization: Perforated diverticulum of large intestine, sepsis, acute liver failure Functional Status/Living Situation Patient Presentation: Jesse is awake and lying in bed with the HOB slightly elevated when CM met with him. He is pleasant and engages easily in conversation. He feels better now that he can have liquids and his pain is better and has been out of bed ambulating in the kumar. Jesse is being closely monitored and receiving IV ABX and pain medication, as needed. He works at [employer] and will need a letter for work. Town of Residence: [place] Resides with: Spouse (Maryann Kothari) Significant Other/Family: Local Employment Status: Employed ([employer]) Instrumental Activities of Daily Living (ADLs): Independent Medications Medication Management: No Issues/Barriers identified Advance Directives Advance Directives: Do you have an Advance Directive: N 05/25/17 11:10 AD On File at [facility]: N 05/25/17 11:10 Date Asked 05/21/24 05/21/24 14:20 AD Date Reviewed COLST On File at [facility] COLST Date Scanned Code Status Resuscitation Status Full Code Portal Pt does not currently have a portal and education provided: Yes Insurance Coverage/Financial Issues Insurance: BC/BS of [place] Financial Issues: None identified Care Team Visit Care Team Role Provider Type Fatou Hayes NP Primary Care Provider NURSE PRACTITIONER Maryann Salgado MD Emergency Provider [facility] STAFF PHYSICIAN Georgi Tariq MD Admit Provider [facility] STAFF PHYSICIAN Attending Provider Discharge Potential Discharge Needs: PCP F/U Appt and Surgical F/U Appt Anticipated Barriers to Discharge: Medical Status Patient/Family Education Needs: Review discharge instructions, discuss Ask Me Three Transportation: Private vehicle Plan: Anticipate Jesse will discharge home when medically cleared by Surgical. will provide transportation. He will follow up with community providers and his discharge plan of care as instructed. No new services are anticipated. A letter for work will is needed, and will include his return to work date and restrictions (if any). Social Determinants of Health Screening Social Determinants of Health last assessed: 05/22/24 Will the Patient Participate in the Screening?: Yes Do you worry about having a steady place to live?: no Problems where you live: no known problems In the past 12 months, have you had to go without electric, gas, oil or water in your home?: no Have you or anyone in your house had to go without enough food to eat?: no Has lack of transportation kept you from medical appointments or from doing things needed for daily living?: no Has anyone in your life made you feel unsafe or unsupported?: no How hard is it for you to pay for the very basics like food, housing, medical care, and heating? Would you say it is:: Not hard at all Do you want help finding or keeping work or a job?: I do not need or want help If for any reason you need help with day-to-day activities such as bathing, preparing meals, shopping, managing finances, etc., do you get the help you need?: I don?t need any help How often do you feel lonely or isolated from those around you?: Never Do you speak a language other than Yoruba at home?: Yes Does the patient want assistance with any of the above?: No Health Related Social Needs Health related social needs: education (Z55.6) PFSH All Active Problems (Updated 05/21/24 @ 18:03 by Maryann Salgado MD) Perforated diverticulum of large intestine (Acute) Obesity (BMI 30-39.9) (Chronic) Cigarette smoker (Chronic) Hyperlipidemia (Chronic) Medical History Lyme disease (2023) Surgical History S/P left inguinal hernia repair (07/22/94) S/P right inguinal hernia repair () Family History Mother , at 48 from hypothermia Substance abuse Alcohol abuse Father , at 66 of MS Heart disease Myocardial infarction Alcohol abuse Maternal Grandfather , in his 70s of kidney cancer Cancer of kidney Maternal Grandmother , at 82 of pancreatic cancer Pancreatic cancer Alcohol use disorder Paternal Grandfather , in his 60s of MS Heart disease Myocardial infarction Paternal Grandmother , in her 80s No problems noted. Sister No problems noted. Sister No problems noted. Sister No problems noted. Brother No problems noted. Brother No problems noted. Social History Smoking/Tobacco Use Status: Current every day Tobacco Type: cigarettes Smoking packs per day: 1.00 Smoking cigarettes per day: 20.0 Years smoked: 12 Smoking pack-years: 12.00 Tobacco: How many years used: 17 Quit status: considering quitting Second Hand Exposure: Yes Smoking risk assessment performed?: Yes Alcohol Intake: current Alcohol Intake frequency: 0-2 drinks per day Alcohol type: beer Details: 6 or more drinks weekly Drug use: Occasionally Substance use type: marijuana Adopted: No Caregiver/Support person: No Household members: spouse Housing: house Number of Children: 0 number of grandchildren: 0 Communication Needs: Corrective Lenses Education Level: high school Do you need help understanding health information?: Rarely current occupation: [employer] Pets and animals: Yes Pets and animals: cat(s) and dog(s) Sexually active: Yes Do you think of yourself as: straight/heterosexual Current gender identity: male What is your relationship status?: How often do you talk on the phone with friends or family?: three or more times per week How often do you get together with friends or relatives?: twice per week How often do you attend druze or jehovah's witness services?: decline to answer Do you belong to any clubs or organized social groups?: yes Panel score (0-1 are the most socially isolated patients): 3 NHANES result reviewed/action taken: Yes What type of physical activity do you participate in: none and other Details: Golf Frequency: 1-2 times per week Sayra/Yazdanism: Non advent Special sayra needs: No Seatbelt use: always Helmet use: No Drive intox or ride w/intox solid waste truck driver: Yes Drive intox or w/intox solid waste truck driver: weekly Firearms in home: Yes Firearms unloaded and locked: Yes Do you feel safe at home: Yes Do you feel safe in your relationship?: Yes Victim of physical abuse: No Victim of emotional abuse: No Victim of sexual abuse: No Would you like helpful sources: No
[2024-05-22 16:00] VITALS: BP 149/80; PULSE 94; TEMP 35.8; O2SAT 96
[2024-05-22 19:24] VITALS: BP 147/82; PULSE 83; RESP 18; TEMP 36.9; O2SAT 96
[2024-05-22 23:21] VITALS: BP 132/78; PULSE 85; RESP 18; TEMP 36.7; O2SAT 96
[2024-05-23] MEDS: Lactated Ringers 1,000 ML 150 ML IV (00:46)
[2024-05-23] MEDS: PIPERACILLIN/TAZO 3.375 GM in Normal Saline 50 ML IVPB ×4 (02:45→19:52)
[2024-05-23 06:31] LABS: Abs Immature Grans 0.06 10^3/uL (0.0-0.06); Absolute Basophil Count 0.03 10^3/uL (0.0-0.2); Absolute Eosinophil Count 0.07 10^3/uL (0.0-0.7); Absolute Lymphocyte Count 1.23 10^3/uL (1.2-3.4); Absolute Monocyte Count 0.98 10^3/uL (0.1-0.8); Absolute Neutrophil Count 8.14 10^3/uL (1.2-6.7); Basophils % 0.3 %; Eosinophils % 0.7 %; HCT 38.7 % (40.0-50.0); HGB 13.1 g/dL (13.5-17.5); Immature Grans % 0.6 %; Lymphocytes % 11.7 %; MCH 29.4 pg (27.0-33.0); MCHC 33.9 % (32.0-36.0); MCV 87 fL (80-95); MPV 10.3 fL (8.0-11.0); Monocytes % 9.3 %; Neutrophils % 77.4 %; Platelet Count 233 10^3/uL (130-400); RBC 4.45 10^6/uL (4.36-5.78); RDW-SD 41.1 fL; WBC 10.51 10^3/uL (4.4-10.8)
[2024-05-23 06:48] LABS: ALT 51 U/L (16-63); AST 35 U/L (15-37); Albumin 2.4 g/dL (3.4-5.0); Alkaline Phosphatase 135 U/L (46-116); Anion Gap 8.7 mmol/L (3-11); BUN 7 mg/dL (7-18); Bilirubin, Total 2.73 mg/dL (0.2-1.0); CO2 27.3 mmol/L (21.0-32.0); Calcium 8.5 mg/dL (8.5-10.1); Chloride 104 mmol/L (98-107); Estimated GFR 99.41 (mL/min/1.73m2); Glucose 98 mg/dL (74-106); Potassium 3.4 mmol/L (3.5-5.1); Sodium 140 mmol/L (136-145); Total Protein 6.4 g/dL (6.4-8.2)
[2024-05-23 07:29] VITALS: BP 143/81; PULSE 88; RESP 20; TEMP 36.5; O2SAT 96
[2024-05-23] MEDS: Normal Saline Flush 10 ML SYR IVP ×3 (08:20→19:51)
[2024-05-23] MEDS: Heparin 5,000 UNITS/ML VIAL 5000 UNITS SC ×2 (08:20→17:08)
--- NOTE | 2024-05-23 08:50 | W.PM.PROGNOT ---
Date of Service Date of service: 05/23/24 Time of Service: 15:05 Assessment and Plan Assessment and plan (1) Perforated diverticulum of large intestine: Status: Acute Assessment and plan: 39-year-old man hospital day 2 with perforated sigmoid diverticulitis. He is hemodynamically stable and significantly improving. His lab work is drastically improving (especially his liver lab work). At this point he can be transition to an oral/regular diet. I anticipate he can probably be discharged home tomorrow on oral antibiotics. He will need an outpatient colonoscopy. I did have a distinct and clear discussion with him and his at the bedside that he is at risk for an abscess to develop based off of how the CT scan appears. Time will tell. Subjective Subjective Interval history since last seen: Patient doing a lot better. Almost no pain today. Tolerating p.o. Voiding adequately. He is passing flatus. Exam Narrative Exam Narrative: Gen: Non-toxic, comfortable and interactive Neuro: Alert and oriented x3 Psych: Good mood and affect. Good insight and understanding into condition. Chest: Non-labored breathing, no wheezing, no visible shortness of breath. Heart: Regular Abdomen: Soft, nondistended, focal left lower quadrant tenderness only to deep palpation. No peritoneal signs. Objective Last Vital Signs Temp 97.7 F 05/23/24 07:29 Pulse 88 05/23/24 07:29 Resp 20 05/23/24 07:29 BP 143/81 H 05/23/24 07:29 Pulse Ox 96 05/23/24 07:29 Laboratory Results - last 24 hr 05/23/24 06:10 WBC 10.51 RBC 4.45 Hgb 13.1 L Hct 38.7 L MCV 87 MCH 29.4 MCHC 33.9 RDW 13.0 Plt Count 233 MPV 10.3 Immature Gran % 0.6 Neutrophils % 77.4 Lymphocytes % 11.7 Monocytes % 9.3 Eosinophils % 0.7 Basophils % 0.3 Nucleated RBC % 0.0 Absolute Neutrophils 8.14 H Absolute Lymphocytes 1.23 Absolute Monocytes 0.98 H Absolute Eosinophils 0.07 Absolute Basophils 0.03 Sodium 140 Potassium 3.4 L Chloride 104 Carbon Dioxide 27.3 Anion Gap 8.7 BUN 7 Creatinine 1.0 Est GFR (CKD-EPI 2020) 99.41 Glucose 98 Calcium 8.5 Total Bilirubin 2.73 H AST 35 ALT 51 Alkaline Phosphatase 135 H Total Protein 6.4 Albumin 2.4 L PAWSS Have you Been Recently Intoxicated or Drunk Within the Last 30 days?: Yes Have you Ever Experienced Previous Episodes of Alcohol Withdrawal?: No Have you ever Experienced Withdrawal Seizures?: No Have you ever Experienced Delirium Tremens(DT)s?: No Have you ever undergone Alcohol Rehabilitation Treatment (i.e, inpt ot outpatient treatment programs)?: No Have you ever Experienced Blackouts?: No Have you ever Combined Alcohol with other Downers within the last 90 days?: No Have you ever Combined Alcohol with any other Substance of Abuse during the last 90 days?: Yes Positive Blood Alcohol level on Presentation? [PCS.BAL]: No Evidence of Increased Autonomic Activity (i.e. HR>120, tremor, sweating, agitation, nausea)?: No Result: 3 Time Spent with Patient Time Spent with Patient: 25-34 minutes Time was spent: preparing to see the patient(eg.review tests), obtaining and/or reviewing separately otained hiistory, ordering medications,tests, procedures, indepentently interpreting results, counseling the patient and care coordination
--- NOTE | 2024-05-23 08:56 | CMPROGNOTE_ITS ---
Date of service: 05/23/24 Time of Service: 08:56 Care Management Progress Note Progress Note Text Progress Note Text: Christopher's admission is being managed by Surgical. He continues to require close monitoring and treatment for Perforated diverticulitis. He's been ambulating in the halls and his diet is being advanced. He is receiving IV ABX and continues to have abdominal discomfort. Will likely need an outpatient colonoscopy per surgical. 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 CM will continue to follow. Discharge Potential Discharge Needs: PCP F/U Appt and Surgical F/U Appt Anticipated Barriers to Discharge: None Identified Patient/Family Education Needs: Review discharge instructions, discuss Ask Me Three Transportation: Private vehicle Plan: Anticipate Jesse will discharge home when medically cleared by Surgical. will provide transportation. He will follow up with community providers and his discharge plan of care as instructed. Outpatient colonoscopy will be needed, per surgical. No VNA services are anticipated. A letter for work will is needed, and will include his return to work date and restrictions (if any). Social Determinants of Health Screening Social Determinants of Health last assessed: 05/23/24 Will the Patient Participate in the Screening?: Yes Do you worry about having a steady place to live?: no Problems where you live: no known problems In the past 12 months, have you had to go without electric, gas, oil or water in your home?: no Have you or anyone in your house had to go without enough food to eat?: no Has lack of transportation kept you from medical appointments or from doing things needed for daily living?: no Has anyone in your life made you feel unsafe or unsupported?: no How hard is it for you to pay for the very basics like food, housing, medical care, and heating? Would you say it is:: Not hard at all Do you want help finding or keeping work or a job?: I do not need or want help If for any reason you need help with day-to-day activities such as bathing, preparing meals, shopping, managing finances, etc., do you get the help you need?: I don?t need any help How often do you feel lonely or isolated from those around you?: Never Do you speak a language other than [place] Rican at home?: Yes Does the patient want assistance with any of the above?: No Health Related Social Needs Health related social needs: education (Z55.6)
[2024-05-23 10:56] LABS: Hepatitis A Antibody IgM Negative (Negative); Hepatitis B Core Antibody Negative (Negative); Hepatitis B surface Ag Negative (Negative); Hepatitis C Ab w Rflx HCV PCR Negative (Negative)
--- NOTE | 2024-05-23 11:28 | PHA.REVIEW2 ---
Pharmacy Admission Review Admission Clinical Review Admission Pharmacy Review: Perforated diverticulum of large intestine (Acute) No Known Allergies Allergy (Verified 05/21/24 14:25) Resuscitation Status Full Code Height 5 ft 10 in Weight 112.491 kg Pharmacy Admission Review Renal Dosing Renal Dosing: BUN 7 mg/dL (7-18) 05/23/24 06:10 Creatinine 1.0 mg/dL (0.70-1.30) 05/23/24 06:10 Medications needing adjustments: Reviewed (CrCl 127.03 mL/min) List of meds needing interventions: Current medications are okay Anticoagulation Anticoagulation: Hgb 13.1 g/dL (13.5-17.5) L 05/23/24 06:10 Hct 38.7 % (40.0-50.0) L 05/23/24 06:10 Plt Count 233 10^3/uL (130-400) 05/23/24 06:10 INR 1.1 (0.9-1.1) 05/21/24 15:58 Creatinine 1.0 mg/dL (0.70-1.30) 05/23/24 06:10 DVT Prophylaxis: Reviewed (Hgb decreased from 13.4) Medications: Heparin (q8h) Relevant Labs Relevant Labs: Sodium 140 mmol/L (136-145) 05/23/24 06:10 Potassium 3.4 mmol/L (3.5-5.1) L 05/23/24 06:10 Chloride 104 mmol/L (98-107) 05/23/24 06:10 Magnesium 2.1 mg/dL (1.8-2.4) 05/21/24 14:43 Electrolytes, C-Reactive P, ESR: Reviewed (K 3.4) Cardiac Review BP, HR, EF%: Reviewed (BP 143/81 and HR 88) QTc Review QTc: Reviewed (No EKG on file) IV to PO Switch IV Medications: Reviewed (ketorolac, ondansetron and Zosyn) Home Meds Home Med List reviewed: Reviewed Relevent Home Meds Not ordered & why?: Augmentin Current Meds Current Medication Order Review: Reviewed Pharmacy Antibiotic Review Relevant Labs: WBC 10.51 10^3/uL (4.4-10.8) 05/23/24 06:10 Temperature 36.5 C Pharmacy Antibiotic Activity: Reviewed, no change Comments: Patient is on Zosyn, day 2, for diverticulitis. WBC decreased from 11.93 and currently no cultures pending.
--- NOTE | 2024-05-23 12:08 | PDOC.CMDIS ---
Date of service: 05/23/24 Time of Service: 12:08 LACE Index Scoring Tool Questions: Length of Stay (in days): 2 Care Management Discharge Plan Discharge Plan: Jesse is medically cleared for discharge and will discharge home, as planned. will provide transportation. He will follow up with community providers and his discharge plan of care as instructed. No new services are ordered prior to discharge. A letter for work is needed, and will include his return to work date and restrictions (if any). SDOH Health Related Social Needs: Health related social needs education (Z55.6)
[2024-05-23 15:08] VITALS: BP 128/80; PULSE 79; RESP 20; TEMP 37.1; O2SAT 97
[2024-05-23 19:52] VITALS: BP 155/88; PULSE 86; RESP 15; TEMP 36.8; O2SAT 94
[2024-05-24] MEDS: Heparin 5,000 UNITS/ML VIAL 5000 UNITS SC ×2 (01:10→07:28)
[2024-05-24] MEDS: PIPERACILLIN/TAZO 3.375 GM in Normal Saline 50 ML IVPB ×2 (01:10→07:31)
[2024-05-24 06:18] LABS: Abs Immature Grans 0.09 10^3/uL (0.0-0.06); Absolute Basophil Count 0.04 10^3/uL (0.0-0.2); Absolute Eosinophil Count 0.08 10^3/uL (0.0-0.7); Absolute Lymphocyte Count 1.18 10^3/uL (1.2-3.4); Absolute Monocyte Count 1.52 10^3/uL (0.1-0.8); Absolute Neutrophil Count 10.99 10^3/uL (1.2-6.7); Basophils % 0.3 %; Eosinophils % 0.6 %; HCT 37.1 % (40.0-50.0); HGB 12.6 g/dL (13.5-17.5); Immature Grans % 0.6 %; Lymphocytes % 8.5 %; MCH 29.4 pg (27.0-33.0); MCV 87 fL (80-95); Monocytes % 10.9 %; Neutrophils % 79.1 %; RBC 4.28 10^6/uL (4.36-5.78); RDW 13.1 % (11.8-14.1); RDW-SD 40.9 fL
[2024-05-24 06:42] LABS: Diff Comment Diff Reviewed; RBC Morphology Normal
[2024-05-24 06:45] LABS: ALT 46 U/L (16-63); AST 28 U/L (15-37); Albumin 2.5 g/dL (3.4-5.0); Alkaline Phosphatase 128 U/L (46-116); Anion Gap 10.7 mmol/L (3-11); BUN 7 mg/dL (7-18); Bilirubin, Total 1.49 mg/dL (0.2-1.0); CO2 24.3 mmol/L (21.0-32.0); CREATININE 0.8 mg/dL (0.70-1.30); Calcium 8.8 mg/dL (8.5-10.1); Chloride 104 mmol/L (98-107); Glucose 92 mg/dL (74-106); Potassium 3.5 mmol/L (3.5-5.1); Sodium 139 mmol/L (136-145); Total Protein 6.5 g/dL (6.4-8.2)
[2024-05-24] MEDS: Normal Saline Flush 10 ML SYR IVP (07:32)
[2024-05-24 07:55] VITALS: BP 133/78; PULSE 90; RESP 18; TEMP 36.7; O2SAT 98
--- NOTE | 2024-05-24 07:59 | PGE_ITS ---
Date of Service Date of service: 05/24/24 Time of Service: 07:59 Assessment and Plan Assessment and plan (1) Perforated diverticulum of large intestine: Status: Acute Assessment and plan: 39-year-old man with perforated sigmoid diverticulitis. He is doing excellent overall and has a benign abdominal exam and is tolerating p.o. and having bowel function. That being said, he does feel quite fatigued, but not febrile. His leukocytosis slightly up?trended this morning compared with normal yesterday. I had prepared him and his for the possibility of developing an abscess. It is too soon to do another CAT scan looking for an abscess but if 1 is going to develop, I suspect in the next 48-56 hours he will remain symptomatic in which case we will do a CT scan outpatient. If he is otherwise doing well and improving, then he does not need to have one done routinely. Him and his are happy with this plan. They are ready to go home. He has antibiotics (Augmentin) at home. He will take this for 1 more week. He is to call us in the surgery office on if he is not feeling significantly better. He is certainly encouraged to call us sooner if things are getting worse for any reason or return to the hospital. Him and his agree. Subjective Subjective Interval history since last seen: No complaints. Tolerating a regular diet. Pain is essentially gone. He is having bowel movements. He feels under the weather and tired. He wants to go home. No fevers overnight. Exam Narrative Exam Narrative: Gen: Non-toxic, comfortable and interactive Neuro: Alert and oriented x3 Psych: Good mood and affect. Good insight and understanding into condition. Chest: Non-labored breathing, no wheezing, no visible shortness of breath. Heart: Regular Abdomen: Soft, nondistended and nontender Objective Last Vital Signs Temp 98.1 F 05/24/24 07:55 Pulse 90 05/24/24 07:55 Resp 18 05/24/24 07:55 BP 133/78 05/24/24 07:55 Pulse Ox 98 05/24/24 07:55 Laboratory Results - last 24 hr 05/21/24 05/24/24 15:58 06:04 WBC 13.90 H RBC 4.28 L Hgb 12.6 L Hct 37.1 L MCV 87 MCH 29.4 MCHC 34.0 RDW 13.1 Plt Count MPV Immature Gran % 0.6 Neutrophils % 79.1 Lymphocytes % 8.5 Monocytes % 10.9 Eosinophils % 0.6 Basophils % 0.3 Nucleated RBC % 0.0 Absolute Neutrophils 10.99 H Absolute Lymphocytes 1.18 L Absolute Monocytes 1.52 H Absolute Eosinophils 0.08 Absolute Basophils 0.04 RBC Morphology Normal Sodium 139 Potassium 3.5 Chloride 104 Carbon Dioxide 24.3 Anion Gap 10.7 BUN 7 Creatinine 0.8 Est GFR (CKD-EPI 2020) 116.90 Glucose 92 Calcium 8.8 Total Bilirubin 1.49 H AST 28 ALT 46 Alkaline Phosphatase 128 H Total Protein 6.5 Albumin 2.5 L Hepatitis A IgM Ab Negative Hep Bs Antigen Negative Hep B Core Total Ab Negative Hepatitis C Antibody Negative PAWSS Have you Been Recently Intoxicated or Drunk Within the Last 30 days?: Yes Have you Ever Experienced Previous Episodes of Alcohol Withdrawal?: No Have you ever Experienced Withdrawal Seizures?: No Have you ever Experienced Delirium Tremens(DT)s?: No Have you ever undergone Alcohol Rehabilitation Treatment (i.e, inpt ot outpa tient treatment programs)?: No Have you ever Experienced Blackouts?: No Have you ever Combined Alcohol with other Downers within the last 90 days?: No Have you ever Combined Alcohol with any other Substance of Abuse during the last 90 days?: Yes Positive Blood Alcohol level on Presentation? [PCS.BAL]: No Evidence of Increased Autonomic Activity (i.e. HR>120, tremor, sweating, agitation, nausea)?: No Result: 3 Time Spent with Patient Time Spent with Patient: <25 minutes Time was spent: preparing to see the patient(eg.review tests), obtaining and/or reviewing separately otained hiistory, ordering medications,tests, procedures, indepentently interpreting results, counseling the patient and care coordination
--- NOTE | 2024-05-24 08:23 | DSE_ITS ---
Date of service: 05/24/24 Time of Service: 08:23 DS: Diagnosis Discharge Diagnosis (1) Perforated diverticulum of large intestine: Status: Acute Discharge Plan Disposition Patient Disposition: Home Condition: Improving Discharge Details Reason For Visit: Perforated Sigmoid Diverticulitis Admit Date/Time: 05/21/24 17:11 Admit Provider: Georgi Tariq Attending Provider: Georgi Tariq [facility] Hospital Course: 39 yo man with perforated diverticulitis was admitted for IV Abx. He did well and was discharged after 2 days with no fevers and resolved pain. He did have a slight leukocytosis still. He might develop an abscess and was instructed on signs and symptoms for returning to hospital. He will be followed closely in the surgery clinic. Home Meds and New Rx's Prescriptions: No Action amoxicillin-pot clavulanate 875-125 mg tablet 1 tab PO BID 10 Days Qty: 20 0RF Rx Instructions: Take with meal. Take 1 pill every 12 hour Discharge Instructions Additional Instructions: Take the oral Abx TWICE daily for the next 7 days. (14 pills) Call surgery office if not feeling much better. If worse, call sooner. Diet as tolerated. Activity as tolerated. If you need paperwork for work, call surgery office. Activity:: Activity as Tolerated Equipment/Supplies:: No Equipment Needed Diet:: As Tolerated Discharge Orders Discharge Orders: Discharge Order (Routine); Ordered 05/24/24 Ordered By: Georgi Tariq DS: Summary Time Spent with Patient providing and/or coordinating discharge services: Greater than 30 minutes Status at Discharge Functional status at discharge: independent ambulation Overall status at discharge: patient is progressing back to baseline Mental Status: mental status grossly normal Speech and Movement: speech and movement normal Mood: congruent mood Affect: normal affect Quality:SDOH Health Related Social Needs: Health related social needs education (Z55.6) Exam Psych Mental Status: mental status grossly normal Speech and Movement: speech and movement normal Mood: congruent mood Affect: normal affect DS: Data Vitals/I&O Vitals and I&O: Vital Signs Temperature 98.1 F 05/24/24 07:55 Temperature Source Temporal Artery Scan 05/24/24 07:55 Pulse 90 05/24/24 07:55 Pulse Rhythm Regular 05/21/24 17:48 Pulse 100 H 05/21/24 17:31 Respiratory Rate 18 05/24/24 07:55 Respiratory Effort Normal 05/21/24 17:48 Respiratory Depth Normal 05/21/24 17:48 Respiratory Pattern Normal 05/21/24 17:48 Blood Pressure 133/78 05/24/24 07:55 Blood Pressure Mean 105 05/21/24 17:31 Blood Pressure Position Sitting 05/21/24 14:27 Pulse Oximetry 98 05/24/24 07:55 Oxygen Delivery Method Room Air 05/24/24 07:55 Oxygen Flow Rate 0 05/24/24 07:55 Pain Level 1 05/24/24 07:55 Comment RN Notified 05/22/24 19:24 Intake & Output 05/23/24 05/23/24 05/24/24 11:59 23:59 11:59 Intake Total 2100.0 / 2620.0 520 / 2620.0 710 / 710 Balance 2100.0 / 2620.0 520 / 2620.0 710 / 710 Intake: IV 1620.0 / 1740.0 120 / 1740.0 110 / 110 Oral 480 / 880 400 / 880 600 / 600 Other: Comment voided in toilet 2x per pt Stool Size Small Stool Characteristics Soft Data Completed and Pending Labs on day of discharge: Labs from last 24 hours 05/24/24 05/21/24 06:04 15:58 WBC 13.90 H RBC 4.28 L Hgb 12.6 L Hct 37.1 L MCV 87 MCH 29.4 MCHC 34.0 RDW 13.1 Plt Count MPV Immature Gran % 0.6 Neutrophils % 79.1 Lymphocytes % 8.5 Monocytes % 10.9 Eosinophils % 0.6 Basophils % 0.3 Nucleated RBC % 0.0 Absolute Neutrophils 10.99 H Absolute Lymphocytes 1.18 L Absolute Monocytes 1.52 H Absolute Eosinophils 0.08 Absolute Basophils 0.04 RBC Morphology Normal Sodium 139 Potassium 3.5 Chloride 104 Carbon Dioxide 24.3 Anion Gap 10.7 BUN 7 Creatinine 0.8 Est GFR (CKD-EPI 2020) 116.90 Glucose 92 Calcium 8.8 Total Bilirubin 1.49 H AST 28 ALT 46 Alkaline Phosphatase 128 H Total Protein 6.5 Albumin 2.5 L Hepatitis A IgM Ab Negative Hep Bs Antigen Negative Hep B Core Total Ab Negative Hepatitis C Antibody Negative PFSH All Active Problems (Updated 05/21/24 @ 18:03 by Maryann Salgado MD) Perforated diverticulum of large intestine (Acute) Obesity (BMI 30-39.9) (Chronic) Cigarette smoker (Chronic) Hyperlipidemia (Chronic) Medical History Lyme disease (2023) Surgical History S/P left inguinal hernia repair (07/22/94) S/P right inguinal hernia repair () Family History Mother , at 48 from hypothermia Substance abuse Alcohol abuse Father , at 66 of NM Heart disease Myocardial infarction Alcohol abuse Maternal Grandfather , in his 70s of kidney cancer Cancer of kidney Maternal Grandmother , at 82 of pancreatic cancer Pancreatic cancer Alcohol use disorder Paternal Grandfather , in his 60s of NM Heart disease Myocardial infarction Paternal Grandmother , in her 80s No problems noted. Sister No problems noted. Sister No problems noted. Sister No problems noted. Brother No problems noted. Brother No problems noted. Social History Smoking/Tobacco Use Status: Current every day Tobacco Type: cigarettes Smoking packs per day: 1.00 Smoking cigarettes per day: 20.0 Years smoked: 12 Smoking pack-years: 12.00 Tobacco: How many years used: 17 Quit status: considering quitting Second Hand Exposure: Yes Smoking risk assessment performed?: Yes Alcohol Intake: current Alcohol Intake frequency: 0-2 drinks per day Alcohol type: beer Details: 6 or more drinks weekly Drug use: Occasionally Substance use type: marijuana Adopted: No Caregiver/Support person: No Household members: spouse Housing: house Number of Children: 0 number of grandchildren: 0 Communication Needs: Corrective Lenses Education Level: high school Do you need help understanding health information?: Rarely current occupation: [employer] Pets and animals: Yes Pets and animals: cat(s) and dog(s) Sexually active: Yes Do you think of yourself as: straight/heterosexual Current gender identity: male What is your relationship status?: How often do you talk on the phone with friends or family?: three or more times per week How often do you get together with friends or relatives?: twice per week How often do you attend hinduism or jew services?: decline to answer Do you belong to any clubs or organized social groups?: yes Panel score (0-1 are the most socially isolated patients): 3 NHANES result reviewed/action taken: Yes What type of physical activity do you participate in: none and other Details: Golf Frequency: 1-2 times per week Sayra/Yazdanism: Non anabaptist Special sayra needs: No Seatbelt use: always Helmet use: No Drive intox or ride w/intox car pick up driver: Yes Drive intox or w/intox car pick up driver: weekly Firearms in home: Yes Firearms unloaded and locked: Yes Do you feel safe at home: Yes Do you feel safe in your relationship?: Yes Victim of physical abuse: No Victim of emotional abuse: No Victim of sexual abuse: No Would you like helpful sources: No Time Spent with Patient Time Spent with Patient: <45 minutes Time was spent: preparing to see the patient(eg.review tests), obtaining and/or reviewing separately otained hiistory, ordering medications,tests, procedures, indepentently interpreting results, counseling the patient and care coordination
[2024-05-24] MEDS: Amoxicillin 875/Clav. 125 TAB PO (09:11)
--- NOTE | 2024-05-24 10:14 | PDOC.CMDIS ---
Date of service: 05/24/24 Time of Service: 10:14 LACE Index Scoring Tool Questions: Length of Stay (in days): 3 Was the patient admitted via the E.D.?: Yes E.D. Visits: 0 Answers: Total Score: 6 Risk of Readmission: Low Risk Care Management Discharge Plan Reason for Hospitalization: perforated diverticulitis Discharge Plan: Jesse returned home today with no new services. He was transported home via private vehicle by family. He will follow up with surgical services and his discharge plan of care. Patient/Family Education Needs: Review discharge instructions and limitations, discussion of self care needs including ask me three. SDOH Health Related Social Needs: Health related social needs education (Z55.6)
== END 2024-05-24 09:17 | disposition home or self-care (01) | DRG 391 ==
LOC: ER 17:29 → MS 17:42
PROVIDERS: Admitting Provider Student in an Organized Health Care Education/Training Program; Emergency Provider Emergency Medicine; PCP Nurse Practitioner Family; Visit Provider Student in an Organized Health Care Education/Training Program
DX: K57.20 Diverticulitis of large intestine with perforation and abscess without bleeding (principal); K72.00 Acute and subacute hepatic failure without coma; E66.9 Obesity, unspecified; F17.210 Nicotine dependence, cigarettes, uncomplicated; E78.5 Hyperlipidemia, unspecified; D72.829 Elevated white blood cell count, unspecified; F10.90 Alcohol use, unspecified, uncomplicated
CPT/HCPCS: 00123; 36415; 80053; 83690; 86704; 86709; 86803; 87340; 96365; 96375; 99285; 74177; 80329; 81003; 81015; 82247; 82248; 83735; 85025; 85610; J1644; J1885; J2543; J3490

== ENCOUNTER 2024-06-23 03:17 | Outpatient (CLI) | payer BC, SELFPAY ==
[2024-06-23 17:07] LABS: Abs Immature Grans 0.01 10^3/uL (0.0-0.06); Absolute Basophil Count 0.06 10^3/uL (0.0-0.2); Absolute Eosinophil Count 0.34 10^3/uL (0.0-0.7); Absolute Lymphocyte Count 2.33 10^3/uL (1.2-3.4); Absolute Monocyte Count 0.49 10^3/uL (0.1-0.8); Absolute Neutrophil Count 3.05 10^3/uL (1.2-6.7); Eosinophils % 5.4 %; HCT 41.4 % (40.0-50.0); HGB 13.6 g/dL (13.5-17.5); Immature Grans % 0.2 %; Lymphocytes % 37.1 %; MCH 29.2 pg (27.0-33.0); MCHC 32.9 % (32.0-36.0); MCV 89 fL (80-95); MPV 10.5 fL (8.0-11.0); Monocytes % 7.8 %; Neutrophils % 48.5 %; Platelet Count 189 10^3/uL (130-400); RBC 4.65 10^6/uL (4.36-5.78); RDW 13.9 % (11.8-14.1); RDW-SD 45.3 fL; WBC 6.28 10^3/uL (4.4-10.8)
[2024-06-23 17:26] LABS: ALT 52 U/L (16-63); AST 24 U/L (15-37); Albumin 3.9 g/dL (3.4-5.0); Alkaline Phosphatase 86 U/L (46-116); Anion Gap 1.8 mmol/L (3-11); BUN 16 mg/dL (7-18); Bilirubin, Total 0.58 mg/dL (0.2-1.0); CO2 32.2 mmol/L (21.0-32.0); Calcium 8.7 mg/dL (8.5-10.1); Chloride 107 mmol/L (98-107); Estimated GFR 99.41 (mL/min/1.73m2); Glucose 89 mg/dL (74-106); Potassium 4.1 mmol/L (3.5-5.1); Sodium 141 mmol/L (136-145)
== END 2024-06-23 03:18 | disposition home or self-care (01) ==
LOC: LBO 03:17
PROVIDERS: PCP Nurse Practitioner Family; Visit Provider Nurse Practitioner Family
DX: K57.20 Diverticulitis of large intestine with perforation and abscess without bleeding (principal)
CPT/HCPCS: 36415; 80053; 85025

== ENCOUNTER 2024-08-08 06:59 | Day surgery (SDC) | payer BC, SELFPAY ==
--- NOTE | 2024-08-07 09:39 | PDOC.DSDIS_ITS ---
Date of service: 08/08/24 Discharge Plan Disposition Patient Disposition: Home Condition: Good Discharge Details Reason For Visit: colonoscopy Attending Provider: Andrea Eisenberg Primary Care Provider: Fatou Hayes Home Meds and New Rx's Prescriptions: Discontinued polyethylene glycol 3350 17 gram/dose powder 238 g PO ONCE Qty: 238 0RF Rx Instructions: take per colonoscopy instructions bisacodyl [Dulcolax (bisacodyl)] 5 mg tablet,delayed release (DR/EC) 5 mg PO ONCE Qty: 4 0RF Rx Instructions: take per colonoscopy instructions Discharge Instructions Instructions: Colon polyps, Diverticulosis Additional Instructions: Jesse, it was good seeing you today, and I hope you are comfortable through the procedure and feel well afterwards. Everything went very smoothly. Your prep was excellent negative everything fine. I did find, and removed 3 polyps today. None of them appear particularly worrisome, and all will be sent off to the pathologist for their review. He also have some mild inflammation of the segment of colon involved with your diverticular disease. This is often times referred to as segmental colitis associated with diverticulosis (or SCAD). The natural history of this is not very well understood, nor are there great brittney atment recommendations. Generally, patients are having diarrhea, or ongoing pain treatment with steroids is recommended. For asymptomatic patients, however, there is quite a bit of debate about whether or not it actually needs to be treated outside of the standard approaches for diverticular management. For now, I would encourage you to keep up with all of the basic changes you have already embraced, and so long as you are feeling well, I do not think we need to do anything out of the ordinary. The polyps that I sent off will take about a week or 2 to get back, but once I have that information I will be in touch with any other recommendations. If you need anything at all, or have any questions, please do not hesitate to ask. 1. If tolerated, consume a soft, low fiber diet for 1-2 days. [address] Do not drive, drink alcohol, operate machinery, make critical decisions, or do activities that require coordination or balance for 24 hours. 3. Because air was put into your colon during the procedure, expelling air from your rectum (passing gas or farting) is normal. 4. You may not have a bowel movement for 1-3 days because of the colonoscopy prep. This is normal. 5. Go directly to the emergency room if you notice any of the following: Develop chills (warm to touch), or if you have a thermometer and your temperature is above 101 Difficulty breathing or difficultly swallowing Persistent vomiting Severe abdominal pain, other than gas cramps Severe chest pain Black, tarry stools Any bleeding ? exceeding one tablespoon 6. Call your physician if the site where your intravenous was started becomes red, swollen, painful, and warm to touch. 7. Your physician has reviewed your pre-procedure medications. Please continue to take those medications as previously ordered. You will be given specific information/education regarding any changes to your medications before leaving. Stand Alone Forms: Anesthesia Discharge InstKat, Bandar Esquivel (DSU) Activity:: Activity as Tolerated Diet:: As Tolerated Discharge Orders Discharge Orders: Discharge Order (Routine); Ordered 08/07/24 Ordered By: Andrea Eisenberg DS: Diagnosis Discharge Diagnosis (1) Encounter for diagnostic colonoscopy due to change in bowel habits: Status: Acute Asessment and Plan: Follow-up on polypectomy results
--- NOTE | 2024-08-07 09:41 | COLE_ITS ---
Date of service: 08/08/24 Time of Service: 08:29 Colonoscopy Report Date of procedure: 08/08/24 Pre-op diagnosis general: diverticulosis Post-op diagnosis procedure note: other (Segmental colitis associated with diverticulosis, diverticulosis, colorectal polyps) Procedure: Diagnostic colonoscopy Surgeon: Andrea Eisenberg Anesthesia Type: General:No Airway Estimated blood loss (mL): 5 Pathology: other (0.25 cm pedunculated polyp at 25 cm, less than 0.25 cm flat polyps in the rectum x 2 (single specimen)) Complications: None Disposition: same day Indications: Jesse is a 39 year old male who was admitted with perforated diverticulitits. He is undergoing diagnostic, confirmatory, colonoscopy Prep: Miralax/Dulcolax Procedure Start Time: 07:54 Procedure End Time: 08:15 Retraction Time: 17 Findings: Diverticulosis extending from about 20 to 35 cm with segmental colitis associat ed with this. 0.25 cm pedunculated polyp at 25 cm, less than 0.25 cm rectal polyps x 2 Procedure Description: After the induction of monitored anesthetic care, and with the patient in left lateral decubitus position, I began by performing an external anorectal exam.? Perineum and skin were normal, as was the anal verge.? There was no evidence of external hemorrhoids.? Next, I performed a digital rectal exam.? I did not appreciate any abnormal findings.? Next, I advanced a colonoscope into the rectal vault.? I performed retroflexion.? This appeared normal.? Using irrigation, I then advanced the colonoscope beyond the rectal folds and into the sigmoid colon before advancing towards the cecum.? The quality of the prep was excellent.? The scope was noted to be in the cecum by identification of the ileocecal valve and appendiceal orifice.? I then began withdrawing the colonoscope using repeated irrigation as necessary for full evaluation of the colonic mucosa. Beginning around 35 cm from the anal verge was a segment of sigmoid diverticulosis. A portion of this was affected by segmental colitis. At 25 cm from the anal verge was a 0.5 cm pedunculated erythematous polyp. This was removed with a energize snare polypectomy with minimal bleeding. ?Once the scope was withdrawn to the level of the rectum, great care was taken to examine portions of the rectal folds.? There were two 0.25 cm flat polyps in the rectal vault. Both of these were removed with cold forceps and sent as a single specimen. There was minimal bleeding. Finally, the scope was withdrawn and the patient was brought to the same-day surgery recovery unit as the anesthetic wore off. ?The findings and instructions were shared with the patient prior to discharge. Kirkwood Bowel Prep Kirkwood Bowel Prep Right Colon: 3 Left Colon: 3 Transverse Colon: 3 Total Score: 9
[2024-08-08 07:12] VITALS: BP 142/87; PULSE 76; RESP 18; TEMP 36.2; O2SAT 96
[2024-08-08] MEDS: Lactated Ringers 1,000 ML 80 ML IV (07:27)
--- NOTE | 2024-08-08 07:34 | W.ANESPRE ---
General Info Date of Service Date Performed: 08/08/24 Height: 5 ft 10.5 in Weight: 117.48 kg Body Mass Index (BMI): 36.6 Surgical Procedure: Operation Date: 08/08/24 08:35 Proposed Procedure Side Surgeon p Colonoscopy Andrea Eisenberg MD Actual Procedure Side Surgeon p Colonoscopy Not Applicable Andrea Eisenberg MD Meds Allergies and Home Medications Allergies Allergy/AdvReac Type Severity Reaction Status Date / Time No Known Allergies Allergy Verified 08/08/24 07:06 Current Visit Medications: Current Medications Generic Name Dose Route Start Last Admin Trade Name Freq PRN Reason Stop Dose Admin Ringer's Solution 1,000 mls @ 80 mls/hr 08/08/24 06:00 08/08/24 07:27 IV 08/08/24 23:59 80 mls/hr INFUSION ENDER Administration IV Miscellaneous Supplies 1 each 08/08/24 06:00 Iv Access IV 08/08/24 23:59 DIRECTED ENDER Ondansetron HCl 4 mg 08/07/24 09:45 Ondansetron 4 Mg/2 Ml Vial IVP 09/06/24 09:44 Q4H PRN PRN Nausea / Vomiting Sodium Chloride 0 ml 08/08/24 06:00 Normal Saline Flush 10 Ml Syr IV 08/08/24 23:59 PRN PRN Sodium Chloride 0 ml 08/08/24 06:00 Normal Saline 10 Ml Vial IJ 08/08/24 23:59 DIRECTED PRN Sterile Water 0 ml 08/08/24 06:00 Water,Injection,Sterile 10 Ml Vial IJ 08/08/24 23:59 DIRECTED PRN PFSH Active Problems Active Problems: Problem Status Onset Code Encounter for diagnostic colonoscopy due to change in bowel habits Acute R19.4 Perforated diverticulum of large intestine Acute K57.20 Obesity (BMI 30-39.9) Chronic E66.9 Hyperlipidemia Chronic E78.5 Medical History Medical History Former cigarette smoker Lyme disease (2023) Surgical History Surgical History S/P left inguinal hernia repair (07/22/94) S/P right inguinal hernia repair () Tobacco Smoking/Tobacco Use Status: Former Tobacco Use Passive smoking exposure: Yes Second hand exposure: Yes Alcohol Alcohol Intake: current Alcohol intake frequency: 0-2 drinks per day Alcohol type: beer Details: 6 or more drinks weekly Substance Use Substance use: Daily Substance use type: marijuana Details: Last used marijuana 08/07/24 Vital Signs and Lab Results Vital Signs Most Recent Vital Signs in EMR: Most Recent Vital Signs Temp Pulse Resp BP Pulse Ox 36.2 C L 76 18 142/87 H 96 08/08/24 07:12 08/08/24 07:12 08/08/24 07:12 08/08/24 07:12 08/08/24 07:12 Lab Results Blood Type / Crossmatch: No Data to Display Complete Blood Count: No Data to Display Complete Metabolic Panel: No Data to Display Liver Function Panel: No Data to Display Coagulation Panel: No Data to Display Cardiac Panel: No Data to Display Arterial Blood Gas: No Data to Display Venous Blood Gas: No Data to Display Pancreas Panel: No Data to Display Thyroid Panel: No Data to Display Infectious Disease: No Data to Display Blood Cultures: No Data to Display Toxicology Panel: No Data to Display Anesthesia Assessment and Plan Anesthesia History Personal History: No History of Anesthesia Complications Family History: No Family History of Anesthesia Complications Exercise Tolerance Exercise Tolerance: Metabolic Equivalents>4 Pertinent Negatives Pertinent Negatives: No Symptoms of GERD, No Major Cardiovascular Symptoms or Complaints and No Major Pulmonary Symptoms or Complaints Cardiac & Pulmonary Exam Cardiac Exam: Normal S1/S2 Heart Sounds Pulmonary Exam: Clear Bilateral Breath Sounds Implantable Cardiac Device Does patient have a Pacemaker or an ICD?: No Airway Exam Known Difficult Airway: No Mallampati Class: 2 Mouth Opening: Normal (> 3cm) Thyromental Distance: Greater than 3 cm Neck Range of Motion: Full ROM Neck Circumference: Thick Teeth Condition: Normal Dentition ASA Classification ASA Score: ASA 2 Emergency Case?: No NPO Status NPO Status: NPO Clears >2 hours, Solids >8 hours Anesthesia Plan Resuscitation Status: Full Code Anesthesia Technique: General Anesthesia Airway Planned: Natural Airway Monitors Used: Standard Monitors
[2024-08-08 07:44] VITALS: BMI 36.6
--- NOTE | 2024-08-08 08:08 | BOWEL_PTH ---
PATIENT: Christopher Kothari LOC: [facility] U#:[id number] AGE/SX: 39/M ROOM: RE08/08/[address]: Andrea Eisenberg MD : [id number] BED: DIS: 08/08/2024 SPEC #: [id number] RECD: 08/08/24 12:58 STATUS: JOSELYN RERamon #: [id number] SAW: 08/08/24 08:[address]: Andrea Eisenberg DEPT: Surgical Specimen RECD BY: Maritza Arguello ENTERED: 08/08/24 12:59 SP TYPE: Bowel OTHR DR: SUJEY Valdes Tissues: 1 - BIOPSY BOWEL 2 - BIOPSY BOWEL Procedures: GROSS AND MICRO LEVEL 4 Comments: [id number]
[2024-08-08 08:20] VITALS: BP 116/69; PULSE 71; RESP 18; TEMP 36.3; O2SAT 99
--- NOTE | 2024-08-08 08:30 | W.ANESPOSTOP ---
Postoperative Evaluation Date, Time and Location Date Performed: 08/08/24 Time Performed: 08:23 Patient Location: Day Surgery Unit Vital Signs Most Recent Imported Vital Signs: Most Recent Vital Signs Temp Pulse Resp BP Pulse Ox 36.3 C L 71 18 116/69 99 08/08/24 08:20 08/08/24 08:20 08/08/24 08:20 08/08/24 08:20 08/08/24 08:20 Pain Score Most Recent Pain Score: Most Recent Pain Score Pain Level 0 08/08/24 07:12 Assessment Mental Status: Awake (Alert & Oriented to Patient Baseline) Airway and Respiratory Function: Patent airway with normal (patient baseline) respiratory exam Cardiovascular Function: Hemodynamically Stable Hydration Status: Adequately Hydrated Nausea & Vomiting: No Nausea or Vomiting Pain: Pt. Denies Any Pain Peripheral Nerve Block: Patient did not receive a nerve block
[2024-08-08 08:41] VITALS: BP 137/93; PULSE 65; RESP 20; TEMP 36.3; O2SAT 99
== END 2024-08-08 09:03 | disposition home or self-care (01) ==
LOC: SUR 06:59
PROVIDERS: PCP Nurse Practitioner Family; Visit Provider Surgery
PROC: 0DJD8ZZ Inspection of Lower Intestinal Tract, Via Natural or Artificial Opening Endoscopic (ICD-10-PCS; CPT 45378; principal; 2024-08-08 08:30)
DX: R19.4 Change in bowel habit (principal); K57.30 Diverticulosis of large intestine without perforation or abscess without bleeding; K62.1 Rectal polyp; K63.5 Polyp of colon
CPT/HCPCS: 45385; 45380; 88305; J2003; J2704